=== PATIENT | male | born 1945 | race Caucasian/White ===

== ENCOUNTER 2016-09-11 | Emergency (ER) | payer MEDICARE | END 2016-09-11 17:03 | disposition home or self-care (01) ==

== ENCOUNTER 2016-10-26 19:05 | Outpatient (CLI) | payer MEDICARE | END 2016-10-26 19:06 | disposition short-term general hospital (02) | DX: R20.9 Unspecified disturbances of skin sensation (principal); W19.XXXA Unspecified fall, initial encounter; Y92.002 Bathroom of unspecified non-institutional (private) residence as the place of occurrence of the external cause | CPT/HCPCS: A0425; A0429 ==

== ENCOUNTER 2016-11-08 22:39 | Outpatient (CLI) | payer MEDICARE | END 2016-11-08 22:40 | disposition critical access hospital (66) | DX: M54.9 Dorsalgia, unspecified (principal); R07.9 Chest pain, unspecified; W18.39XA Other fall on same level, initial encounter; Y93.K1 Activity, walking an animal | CPT/HCPCS: A0425; A0427 ==

== ENCOUNTER 2016-11-08 22:48 | Emergency (ER) | payer MEDICARE | END 2016-11-09 02:10 | disposition home or self-care (01) | DX: R07.9 Chest pain, unspecified (principal); I10 Essential (primary) hypertension; I25.10 Atherosclerotic heart disease of native coronary artery without angina pectoris; E78.00 Pure hypercholesterolemia, unspecified; E11.9 Type 2 diabetes mellitus without complications; Z79.4 Long term (current) use of insulin; J44.9 Chronic obstructive pulmonary disease, unspecified; G47.30 Sleep apnea, unspecified; Z86.73 Personal history of transient ischemic attack (TIA), and cerebral infarction without residual deficits; Z86.718 Personal history of other venous thrombosis and embolism; M19.90 Unspecified osteoarthritis, unspecified site; Z79.82 Long term (current) use of aspirin; Z87.891 Personal history of nicotine dependence ==

== ENCOUNTER 2016-11-25 17:24 | Emergency (ER) | payer MEDICARE ==
[2016-11-25] MEDS ORDERED: ADENOSINE 6 MG/2 ML VIAL IVP STA (17:51)
[2016-11-25] MEDS ORDERED: ADENOSINE 6 MG/2 ML VIAL IVP ONE (17:52)
[2016-11-25] MEDS ORDERED: HEPARIN 25,000 UNITS/500 ML 500 ML IV STA (18:31)
[2016-11-25] MEDS ORDERED: HEPARIN 5,000 UNIT/ML VIAL IVP ONE (18:31)
[2016-11-25] MEDS ORDERED: METOPROLOL 5 MG/5 ML VIAL IVP ONE ×3 (18:34→19:07)
[2016-11-25] MEDS ORDERED: HEPARIN 5,000 UNIT/ML VIAL ONE ×2 (18:35)
[2016-11-25] MEDS ORDERED: HEPARIN 25,000 UNITS/500 ML 500 ML IV ONE (18:35)
[2016-11-25] MEDS: METOPROLOL 5 MG/5 ML VIAL IVP STA ×3 (18:37→19:09)
== END 2016-11-25 20:18 | disposition short-term general hospital (02) ==
DX: I21.4 Non-ST elevation (NSTEMI) myocardial infarction (principal); I25.10 Atherosclerotic heart disease of native coronary artery without angina pectoris; Z95.1 Presence of aortocoronary bypass graft; E11.22 Type 2 diabetes mellitus with diabetic chronic kidney disease; N18.5 Chronic kidney disease, stage 5; E11.51 Type 2 diabetes mellitus with diabetic peripheral angiopathy without gangrene; Z99.2 Dependence on renal dialysis; Z79.4 Long term (current) use of insulin; J44.9 Chronic obstructive pulmonary disease, unspecified; K21.9 Gastro-esophageal reflux disease without esophagitis; M19.90 Unspecified osteoarthritis, unspecified site; Z79.82 Long term (current) use of aspirin; Z87.891 Personal history of nicotine dependence; E78.00 Pure hypercholesterolemia, unspecified
CPT/HCPCS: 80053; 83690; 83735; 84484; 85025; 85610; 93005; 93010; 96374; 96375; 99284; 99291; J0153

== ENCOUNTER 2016-11-25 20:16 | Outpatient (CLI) | payer MEDICARE | END 2016-11-25 20:17 | disposition short-term general hospital (02) | DX: I21.4 Non-ST elevation (NSTEMI) myocardial infarction (principal) | CPT/HCPCS: A0425; A0426 ==

== ENCOUNTER 2017-02-27 01:24 | Emergency (ER) | payer MEDICARE ==
--- NOTE | 2017-02-27 01:59 | ED Physician Documentation ---
PD HPI CHEST PAIN - Stated complaint Stated Complaint: CHEST PAIN - History obtained from History obtained from: Patient - History of Present Illness Timing - onset: How many hours ago (3), Today Timing - onset during: Rest (watching TV, though he says he was tired due to driving into [place] today (his daughter hospitalized there and having surgery). ) Timing - duration: Hours (1-2 hours of some chest pressure/pain, improved enroute.) Timing - details: Abrupt onset, Now resolved. No: Still present Quality: Pressure, Aching, Pain Location: Substernal, Left chest Radiation: Back Worsened by: No: Exertion, Inspiration, Movement, Palpation Associated symptoms: Shortness of air, General Weakness. No: Nausea, Vomiting, Feeling faint / dizzy, Cough Similar symptoms before: Diagnosis (has had recurrent chest pains in the past, with history of diabetes, CAD with CABG and some lung disease.) Recently seen: Admitted (records showing transfer to [facility] in November 2016 and he says he had cath by Cardiology which did not show any significant stenoses of his prior grafts. Obtaining that cath report by [facility] Review of Systems Constitutional: denies: Fever, Chills Nose: denies: Rhinorrhea / runny nose, Congestion Throat: denies: Sore throat Cardiac: reports: Chest pain / pressure. denies: Palpitations, Pedal edema, Calf pain Respiratory: reports: Dyspnea (chronic), Cough GI: denies: Nausea, Vomiting, Diarrhea : denies: Dysuria, Frequency Skin: denies: Rash, Lesions Neurologic: reports: Generalized weakness. denies: Focal weakness, Numbness, Near syncope Endocrine: denies: Weight loss, Weight gain Immunocompromised: denies: Immunocompromised PD PAST MEDICAL HISTORY - Past Medical History Cardiovascular: Hypertension, High cholesterol, Coronary artery disease, Peripheral Vascular Disease, Deep vein thrombosis, Murmur Respiratory: COPD, Sleep apnea Neuro: CVA Endocrine/Autoimmune: Type 2 diabetes GI: GERD : Renal insuffiency HEENT: None Psych: Claustrophobia Musculoskeletal: Osteoarthritis Derm: None, Other - Past Surgical History Past Surgical History: Yes General: Appendectomy, Colonoscopy Cardiovascular: CABG, Coronary stent HEENT: Tonsil/Adenoidectomy - Present Medications Home Medications: Ambulatory Orders Medication Instructions Recorded Confirmed Aspirin [Aspir 81] 81 mg PO DAILY 01/27/13 02/27/17 Aspirin/Sod Bicarb/Citric Acid 1 tab PO BID PRN 01/27/13 02/27/17 [[place] Blue Tab Eff] Clopidogrel [Plavix] 75 mg PO DAILY 01/27/13 02/27/17 Atorvastatin Calcium 80 mg PO HS 02/09/13 02/27/17 Isosorbide Mononitrate [Isosorbide 60 mg PO DAILY 03/13/14 02/27/17 Mononitrate ER] Tamsulosin [Flomax] 0.4 mg PO QPM 08/06/14 02/27/17 Niacin [Niaspan] 500 mg PO DAILY 08/27/14 02/27/17 LORazepam [Ativan] 0.5 mg PO HS PRN 09/17/14 02/27/17 Cholecalciferol (Vitamin D3) 2,000 units PO DAILY 06/03/16 02/27/17 [Vitamin D3] Furosemide 80 mg PO BID 11/25/16 02/27/17 Insulin Detemir [Levemir] 25 unit SQ BID 02/27/17 02/27/17 Losartan [Cozaar] 100 mg PO DAILY 02/27/17 02/27/17 Metoprolol Succinate 1 tab PO DAILY 02/27/17 02/27/17 Omeprazole 1 tab PO BID 02/27/17 02/27/17 amLODIPine [Norvasc] 2 tab PO DAILY 02/27/17 02/27/17 - Allergies Allergies/Adverse Reactions: Allergies Allergy/AdvReac Type Severity Reaction Status Date / Time oxycodone AdvReac Intermediate Hallucinati Verified 02/27/17 02:19 ons bee stings Allergy Severe throat Uncoded 11/25/16 17:33 swelling - Social History Does the pt smoke?: No Smoking Status: Former smoker Does the pt drink ETOH?: No Does the pt have substance abuse?: No - Family History Family history: reports: Non contributory - Immunizations Immunizations are current?: Yes - POLST Patient has POLST: No PD ED PE NORMAL - Vitals Vital signs reviewed: Yes - General General: Alert and oriented X 3, No acute distress, Well developed/nourished - HEENT HEENT: Atraumatic, Other (somewhat unkempt hubbard and nails/hair. ) - Neck Neck: Supple, no meningeal sign, No adenopathy - Cardiac Cardiac: RRR, No murmur - Respiratory Respiratory: Clear bilaterally, Other (no chestwall tenderness. ) - Abdomen Abdomen: Normal bowel sounds, Soft, Non tender, Non distended - Back Back: No CVA TTP - Derm Derm: Normal color, Warm and dry - Extremities Extremities: No deformity, No tenderness to palpate, Normal ROM s pain, No edema , No calf tenderness / cord - Neuro Neuro: Alert and oriented X 3, No motor deficit, Normal speech - Psych Psych: Normal mood, Normal affect Results - Vitals Vitals: Vital Signs - 24 hr 02/27/17 03:50 Heart Rate 80 Respiratory 16 Rate Blood Pressure 105/60 O2 Saturation 96 Oxygen O2 Source [With Activity] Room air O2 Source [Without Activity] Room air O2 Source Room air - EKG (time done) 01:50 Rate: Rate (enter#) (89) Rhythm: NSR [place]: Normal Intervals: Normal [place] QRS: Normal Ischemia: Normal ST segments, Non specific changes. No: ST elevation c/w ischemia, ST depression - Labs Labs: Laboratory Tests 02/27/17 02/27/17 02:20 02:20 Sodium 139 Potassium 3.4 L Chloride 99 L Carbon Dioxide 26 Anion Gap 14.0 H BUN 42 H Creatinine 5.5 H Estimated GFR (MDRD) 10 L Glucose 108 H Calcium 10.6 H Magnesium 1.8 Total Bilirubin 0.5 AST 15 ALT 14 Alkaline Phosphatase 59 Troponin I 0.06 Total Protein 6.9 Albumin 3.8 Globulin 3.1 Albumin/Globulin Ratio 1.2 Lipase 14 L - Rads (name of study) chest Radiology: Prelim report reviewed, EMP read contemporaneously (no acute process) PD MEDICAL DECISION MAKING - ED course Complexity details: reviewed results, re-evaluated patient (pain is resolved here. ECG and troponin, CXR are okay. He is comfortable going home. ), considered differential, d/w patient Departure - Departure Disposition: Home, Self Care Clinical Impression: Chest pain Condition: Stable Record reviewed to determine appropriate education?: Yes Instructions: ED Chest Pain Atypical Unkn Cause Follow-Up: Nigel Alejo MD [Primary Care Provider] - Comments: Continue usual medications and treatments. Follow-up with your primary care or here in the ER if recurrent symptoms. At this point no signs of significant cause such as heart attack or heart failure. Discharge Date/Time: 02/27/17 04:05
[2017-02-27] MEDS ORDERED: ACETAMINOPHEN 325 MG TABLET PO STA (02:10)
[2017-02-27] MEDS ORDERED: ACETAMINOPHEN 325 MG TABLET PO ONE (02:18)
[2017-02-27 02:51] LABS: ALBUMIN/GLOBULIN RATIO 1.2 (1.0-2.2); BILIRUBIN,TOTAL 0.5 mg/dL (0.2-1.0); CALCIUM 10.6 mg/dL (8.5-10.3); CREATININE 5.5 mg/dL (0.6-1.2); MAGNESIUM 1.8 mg/dL (1.7-2.8); POTASSIUM 3.4 mmol/L (3.5-5.0); TOTAL PROTEIN 6.9 g/dL (6.7-8.2)
--- NOTE | 2017-02-27 03:42 | XRAY Preliminary Report ---
Exam: XR Chest 2 View PA/LAT IMPRESSION: Stable chest without acute process seen. [facility] SITE ID: [id number]
--- NOTE | 2017-02-27 03:44 | XRAY Report ---
EXAM: CHEST RADIOGRAPHY EXAM DATE: 02/27/2017 03:13 AM. CLINICAL HISTORY: Chest pain tonight. COMPARISON: 11/08/2016. TECHNIQUE: 2 views. FINDINGS: Lungs/Pleura: No focal opacities evident. No pleural effusion. No pneumothorax. Normal volumes. Mediastinum: Heart and mediastinal contours are unremarkable. Other: Stable right central catheter. Previous CABG. IMPRESSION: Stable chest without acute process seen. [facility] Referring Provider Line: [phone] SITE ID: [id number]
[2017-02-27 03:51] VITALS: BP 105/60
== END 2017-02-27 04:05 | disposition home or self-care (01) ==
LOC: ED 01:24
DX: R07.9 Chest pain, unspecified (principal); I10 Essential (primary) hypertension; E11.9 Type 2 diabetes mellitus without complications; Z79.4 Long term (current) use of insulin; I25.10 Atherosclerotic heart disease of native coronary artery without angina pectoris; Z95.1 Presence of aortocoronary bypass graft; I73.9 Peripheral vascular disease, unspecified; J44.9 Chronic obstructive pulmonary disease, unspecified; G47.30 Sleep apnea, unspecified; K21.9 Gastro-esophageal reflux disease without esophagitis; M19.90 Unspecified osteoarthritis, unspecified site; N28.9 Disorder of kidney and ureter, unspecified; Z86.718 Personal history of other venous thrombosis and embolism; Z87.891 Personal history of nicotine dependence; Z79.82 Long term (current) use of aspirin; E78.00 Pure hypercholesterolemia, unspecified
CPT/HCPCS: 36415; 71020; 80053; 83690; 83735; 84484; 93005; 99283; 99285; A9270

== ENCOUNTER 2017-05-09 21:38 | Emergency (ER) | payer MEDICARE ==
[2017-05-09] MEDS ORDERED: ASPIRIN CHEW 81 MG TABLET PO STA (21:51)
[2017-05-09] MEDS ORDERED: NITROGLYCERIN SL 0.4 MG TABLET SL STA ×3 (21:51→22:27)
[2017-05-09] MEDS ORDERED: NITROGLYCERIN SL 0.4 MG TABLET SL ONE ×2 (21:59→22:23)
[2017-05-09] MEDS ORDERED: ASPIRIN CHEW 81 MG TABLET ONE (21:59)
--- NOTE | 2017-05-09 22:00 | ED Physician Documentation ---
PD HPI CHEST PAIN - Stated complaint Stated Complaint: CHEST PAIN - Chief complaint Chief Complaint: Cardiac - History obtained from History obtained from: Patient - History of Present Illness Timing - onset: How many hours ago (2) Timing - onset during: Rest Timing - details: Still present Pain level now: 8 Quality: Pain Location: Right chest Radiation: Right upper extremity Associated symptoms: Shortness of air. No: Diaphoresis, Nausea, Vomiting Similar symptoms before: Diagnosis (History of CAD, S/P CABG) - Treatment prior to arrival Treatment prior to arrival: NTG x 1 w/o relief. - Additional information Additional information: The patient is a 71-year-old insulin-dependent diabetic, with history of coronary artery disease, status post CABG, and history of renal failure, on dialysis, who presents with right sided chest pain radiating to his right arm. His pain started about 2 hours prior to arrival while at rest. He reports associated shortness of breath. He denies nausea, vomiting, or diaphoresis. He rates his pain at 8 out of 10 in severity. He was seen here 2 months ago with similar episode that had resolved just prior to his arrival. Review of his medical record reveals that in November 2016 he was transferred to [facility] for chest pain, and underwent cardiac catheterization which reportedly revealed no significant stenosis in his prior grafts. Review of Systems Constitutional: denies: Fever Ears: denies: Tinnitus/ringing Nose: denies: Congestion Throat: denies: Sore throat Cardiac: reports: Chest pain / pressure. denies: Palpitations Respiratory: reports: Dyspnea. denies: Cough GI: denies: Abdominal Pain, Nausea, Vomiting : denies: Dysuria Skin: denies: Rash Musculoskeletal: denies: Back pain, Extremity swelling Neurologic: denies: Focal weakness, Numbness, Headache PD PAST MEDICAL HISTORY - Past Medical History Cardiovascular: Hypertension, High cholesterol, Coronary artery disease, Peripheral Vascular Disease, Deep vein thrombosis, Murmur Respiratory: COPD, Sleep apnea Neuro: CVA Endocrine/Autoimmune: Type 2 diabetes GI: GERD : Dialysis, Renal insuffiency HEENT: None Psych: Claustrophobia Musculoskeletal: Osteoarthritis Derm: None, Other - Past Surgical History Past Surgical History: Yes General: Appendectomy, Colonoscopy Cardiovascular: CABG, Coronary stent HEENT: Tonsil/Adenoidectomy - Present Medications Home Medications: Ambulatory Orders Medication Instructions Recorded Confirmed Aspirin [Aspir 81] 81 mg PO DAILY 07/05/13 10/15/17 Aspirin/Sod Bicarb/Citric Acid 1 tab PO BID PRN 01/27/13 05/09/17 [[place] Blue Tab Eff] Clopidogrel [Plavix] 75 mg PO DAILY 01/27/13 05/09/17 Atorvastatin Calcium 80 mg PO HS 02/09/13 05/09/17 Isosorbide Mononitrate [Isosorbide 60 mg PO DAILY 03/13/14 05/09/17 Mononitrate ER] Tamsulosin [Flomax] 0.4 mg PO QPM 08/06/14 05/09/17 Niacin [Niaspan] 500 mg PO DAILY 08/27/14 05/09/17 LORazepam [Ativan] 0.5 mg PO HS PRN 09/17/14 05/09/17 Cholecalciferol (Vitamin D3) 2,000 units PO DAILY 06/03/16 05/09/17 [Vitamin D3] Furosemide 80 mg PO BID 11/25/16 05/09/17 Insulin Detemir [Levemir] 25 unit SQ BID 02/27/17 05/09/17 Losartan [Cozaar] 100 mg PO DAILY 02/27/17 05/09/17 Metoprolol Succinate 1 tab PO DAILY 02/27/17 05/09/17 Omeprazole 1 tab PO BID 02/27/17 05/09/17 amLODIPine [Norvasc] 2 tab PO DAILY 02/27/17 05/09/17 - Allergies Allergies/Adverse Reactions: Allergies Allergy/AdvReac Type Severity Reaction Status Date / Time oxycodone AdvReac Intermediate Hallucinati Verified 02/27/17 02:19 ons bee stings Allergy Severe throat Uncoded 11/25/16 17:33 swelling - Living Situation Living Arrangement: reports: At home - Social History Does the pt smoke?: No Smoking Status: Never smoker Does the pt drink ETOH?: No Does the pt have substance abuse?: No - Immunizations Immunizations are current?: Yes - POLST Patient has POLST: No PD ED PE NORMAL - Vitals Vital signs reviewed: Yes (Hypertensive) - General General: Alert and oriented X 3, Other (Somewhat ill kempt male who appears stated age.) - HEENT HEENT: Atraumatic, Moist mucous membranes, Pharynx benign - Neck Neck: No adenopathy, No JVD - Cardiac Cardiac: RRR, No murmur - Respiratory Respiratory: No respiratory distress, Clear bilaterally, Other (No chest wall tenderness to palpation. His area of discomfort is directly over the site where his dialysis catheter had previously been placed, and was removed 2 weeks ago.) - Abdomen Abdomen: Soft, Non tender, Other (Rotund abdomen.) - Back Back: No CVA TTP - Derm Derm: No rash, Other (Blotches of superficial ecchymosis on his hands.) - Extremities Extremities: No edema (Trace pedal edema bilaterally.), No calf tenderness / cord - Neuro Neuro: Alert and oriented X 3, No motor deficit, Normal speech Results - Vitals Vitals: Vital Signs - 24 hr 05/09/17 05/09/17 05/09/17 21:42 22:12 22:30 Temperature 36.7 C Heart Rate 109 H 100 96 Respiratory 20 20 19 Rate Blood Pressure 186/71 H 162/67 H 129/62 O2 Saturation 99 95 96 05/10/17 05/10/17 05/10/17 00:30 01:21 02:30 Temperature 36.8 C Heart Rate 85 84 81 Respiratory 11 L 16 18 Rate Blood Pressure 152/68 H 148/65 H 179/89 H O2 Saturation 95 96 96 05/10/17 05/10/17 05/10/17 03:17 03:36 04:20 Temperature Heart Rate 87 81 72 Respiratory 18 11 L 15 Rate Blood Pressure 184/86 H 154/73 H 100/72 O2 Saturation 98 95 97 Oxygen O2 Source [] Room air O2 Source [] Room air O2 Source Room air - EKG (time done) 21:53 Rate: Rate (enter#) (96) Rhythm: NSR [place]: LAD QRS: LVH Ischemia: ST depression (in anterior and lateral leads I, aVL, and V2-V6, consistent with repolarization versus possible ischemia.) Compare to prior EKG: Changed from prior EKG (ST depression in V2 is slightly more pronounced than on previous EKG of 02/27/2017.) Computer interpretation: Agree with computer 02:46 Rate: Rate (enter#) (83) Rhythm: NSR Intervals: Normal [place] QRS: LVH Ischemia: ST depression Compare to prior EKG: Unchanged from prior EKG Computer interpretation: Agree with computer - Labs Labs: Laboratory Tests 05/09/17 05/09/17 05/09/17 22:10 22:10 22:10 WBC 9.5 RBC 3.49 L Hgb 11.5 L Hct 34.7 L MCV 99.2 H MCH 33.0 H MCHC 33.3 RDW 15.0 Plt Count 270 MPV 7.6 Neut # 5.8 Lymph # 2.0 Angelina # 1.1 H Eos # 0.4 Baso # 0.1 Absolute Nucleated RBC 0.00 Nucleated RBC % 0.0 Sodium 136 Potassium 3.6 Chloride 96 L Carbon Dioxide 25 Anion Gap 15.0 H BUN 41 H Creatinine 4.9 H Estimated GFR (MDRD) 12 L Glucose 266 H Calcium 10.1 Total Bilirubin 0.5 AST 16 ALT 12 Alkaline Phosphatase 74 Troponin I 0.12 B-Natriuretic Peptide Total Protein 7.5 Albumin 3.6 Globulin 3.9 Albumin/Globulin Ratio 0.9 L Lipase 21 L 05/09/17 05/10/17 22:10 02:25 WBC RBC Hgb Hct MCV MCH MCHC RDW Plt Count MPV Neut # Lymph # Angelina # Eos # Baso # Absolute Nucleated RBC Nucleated RBC % Sodium Potassium Chloride Carbon Dioxide Anion Gap BUN Creatinine Estimated GFR (MDRD) Glucose Calcium Total Bilirubin AST ALT Alkaline Phosphatase Troponin I 0.72 H* B-Natriuretic Peptide 161 H Total Protein Albumin Globulin Albumin/Globulin Ratio Lipase - Rads (name of study) Chest 1-view Radiology: Prelim report reviewed, EMP read contemporaneously, See rad report ( Rotated exam with small lung mooney and borderline heart size. No acute abnormality seen.) PD MEDICAL DECISION MAKING - ED course Complexity details: reviewed old records, reviewed results, re-evaluated patient , considered differential, d/w patient, d/w hospice care consultant ED course: The patient's presentation is significant for non-ST elevation ND. His initial troponin was in the normal range at 0.12, but 4 hour troponin became positive at 0.72. His electrocardiogram revealed no significant change from prior EKG of February 27, 2017, although the ST segment depression in anterior precordial lead V2 was somewhat more pronounced. Chest x-ray reveals no acute abnormality. Treatment in the emergency department included administration of 4 baby aspirin orally, sublingual nitroglycerin 3, which improved his pain to a 6 out of 10 in severity. Morphine 4 mg administered IV, which improved his pain yet further. GI cocktail had no impact on his discomfort. Subsequently Nitropaste 1 inch was applied topically, an additional 4 mg morphine was administered IV, and heparin bolus and drip was administered. The patient subsequently reports resolution of his chest pain. I discussed his condition with Dr. Kaur, hospice director at [facility], and he will see the patient upon arrival to [facility]. He advised that I should also talk to the hospitalist who will be the accepting physician. I discussed his condition with Dr. Thuy Vasquez, who will accept the patient in transfer. Transfer forms were completed, and the patient is being transferred by [facility] ambulance. Departure - Departure Disposition: 02 Transfer Acute Care Hosp Clinical Impression: NSTEMI (non-ST elevated myocardial infarction), Renal dialysis status Diabetes mellitus Qualifiers: Diabetes mellitus type: type 2 Diabetes mellitus complication status: with kidney complications Diabetes mellitus complication detail: with nephropathy Diabetes mellitus longterm insulin use: with longterm use Qualified Code(s): E11.21 - Type 2 diabetes mellitus with diabetic nephropathy Condition: Fair Discharge Date/Time: 05/10/17 04:50
[2017-05-09 22:14] LABS: BASOPHILS # (AUTO) 0.1 10^3/uL (0.0-0.1); BASOPHILS % (AUTO) 1.1 %; EOSINOPHILS # (AUTO) 0.4 10^3/uL (0.0-0.7); EOSINOPHILS % (AUTO) 4.4 %; HCT - HEMATOCRIT 34.7 % (42.0-52.0); HGB - HEMOGLOBIN 11.5 g/dL (14.0-18.0); LYMPHOCYTES % (AUTO) 21.3 %; MEAN CORPUSCULAR HGB CONC 33.3 g/dL (32.0-36.0); MEAN CORPUSCULAR VOLUME 99.2 fL (80.0-94.0); MEAN PLATELET VOLUME 7.6 fL (7.4-11.4); MONOCYTES # (AUTO) 1.1 10^3/uL (0.0-1.0); MONOCYTES % (AUTO) 11.6 %; NEUTROPHILS # (AUTO) 5.8 10^3/uL (1.5-6.6); NEUTROPHILS % (AUTO) 61.6 %; RED BLOOD COUNT 3.49 10^6/uL (4.70-6.10); UNCORRECTED WHITE BLOOD COUNT 9.5 x10^3/uL; WHITE BLOOD COUNT 9.5 x10^3/uL (4.8-10.8)
[2017-05-09 22:27] LABS: ALBUMIN/GLOBULIN RATIO 0.9 (1.0-2.2); BILIRUBIN,TOTAL 0.5 mg/dL (0.2-1.0); CALCIUM 10.1 mg/dL (8.5-10.3); CREATININE 4.9 mg/dL (0.6-1.2); POTASSIUM 3.6 mmol/L (3.5-5.0); TOTAL PROTEIN 7.5 g/dL (6.7-8.2)
--- NOTE | 2017-05-09 22:41 | XRAY Preliminary Report ---
Exam: XR CHEST 1 VIEW IMPRESSION: 1. Rotated exam with small lung volumes and borderline heart size. 2. No acute abnormality seen. [facility] SITE ID: [id number]
--- NOTE | 2017-05-09 22:44 | XRAY Report ---
EXAM: CHEST RADIOGRAPHY EXAM DATE: 05/09/2017 10:21 PM. CLINICAL HISTORY: Chest pain. COMPARISON: 02/27/2017. TECHNIQUE: 1 view. FINDINGS: Lungs/Pleura: Small lung volumes. Chronic increased markings. No alveolar consolidation or pleural ef fusion. No pneumothorax. Mediastinum: Rotated. Heart size is probably upper normal. Other: Median sternotomy. Dialysis catheter has been removed. IMPRESSION: 1. Rotated exam with small lung volumes and borderline heart size. 2. No acute abnormality seen. [facility] Referring Provider Line: [phone] SITE ID: [id number]
[2017-05-09] MEDS ORDERED: LIDOCAINE VISCOUS 2% 15 ML UDC MM STA (23:03)
[2017-05-09] MEDS ORDERED: PHENobarb/HYOSCY/ATROPINE/SCOP 5 ML SYRINGE PO STA (23:03)
[2017-05-09] MEDS ORDERED: MAG HYDROX/AL HYDROX/SIMETH 30 ML UDC PO STA (23:03)
[2017-05-09] MEDS ORDERED: PHENobarb/HYOSCY/ATROPINE/SCOP 5 ML SYRINGE PO ONE (23:10)
[2017-05-09] MEDS ORDERED: LIDOCAINE VISCOUS 2% 15 ML UDC MM ONE (23:10)
[2017-05-09] MEDS ORDERED: MAG HYDROX/AL HYDROX/SIMETH 30 ML UDC ONE (23:10)
[2017-05-09] MEDS ORDERED: MORPHINE 2 MG/ML SYRINGE IVP STA (23:44)
[2017-05-09] MEDS ORDERED: MORPHINE 2 MG/ML SYRINGE ONE (23:55)
[2017-05-09] MEDS ORDERED: SODIUM CHLORIDE FLUSH 0.9% 10 ML SYRINGE IVP ONE (23:55)
[2017-05-10] MEDS ORDERED: HEPARIN 5,000 UNIT/ML VIAL IVP ONE (02:56)
[2017-05-10] MEDS ORDERED: NITROGLYCERIN 2% PASTE TOP STA (02:57)
[2017-05-10] MEDS ORDERED: CLOPIDOGREL 300 MG TABLET PO STA (02:58)
[2017-05-10] MEDS ORDERED: NITROGLYCERIN 2% PASTE TOP ONE (03:02)
[2017-05-10] MEDS ORDERED: HEPARIN 25000UNITS/500ML (D5W) 25,000 UNIT/500 ML BAG IV ONE (03:03)
[2017-05-10] MEDS ORDERED: HEPARIN 5,000 UNIT/ML VIAL ONE ×2 (03:03→03:08)
[2017-05-10] MEDS ORDERED: CLOPIDOGREL 300 MG TABLET PO ONE (03:05)
[2017-05-10] MEDS ORDERED: MORPHINE 10 MG/ML VIAL IVP STA (03:08)
[2017-05-10] MEDS ORDERED: MORPHINE 2 MG/ML SYRINGE ONE (03:13)
[2017-05-10 04:21] VITALS: BP 100/72
[2017-05-10] MEDS ORDERED: HEPARIN 25000UNITS/500ML (D5W) 25,000 UNIT/500 ML BAG IV STA (04:41)
== END 2017-05-10 04:50 | disposition short-term general hospital (02) ==
LOC: ED 21:38
DX: I21.4 Non-ST elevation (NSTEMI) myocardial infarction (principal); E11.21 Type 2 diabetes mellitus with diabetic nephropathy; E11.22 Type 2 diabetes mellitus with diabetic chronic kidney disease; I12.9 Hypertensive chronic kidney disease with stage 1 through stage 4 chronic kidney disease, or unspecified chronic kidney disease; N18.9 Chronic kidney disease, unspecified; E11.51 Type 2 diabetes mellitus with diabetic peripheral angiopathy without gangrene; I25.10 Atherosclerotic heart disease of native coronary artery without angina pectoris; R94.31 Abnormal electrocardiogram [ECG] [EKG]; Z95.5 Presence of coronary angioplasty implant and graft; Z95.1 Presence of aortocoronary bypass graft; Z79.4 Long term (current) use of insulin; Z99.2 Dependence on renal dialysis; Z86.718 Personal history of other venous thrombosis and embolism; Z79.82 Long term (current) use of aspirin
CPT/HCPCS: 36415; 71010; 80053; 83690; 83880; 84484; 85025; 93005; 96374; 96375; 96376; 99284; A9270; J2270

== ENCOUNTER 2017-05-10 04:52 | Outpatient (CLI) | payer MEDICARE | END 2017-05-10 04:53 | disposition short-term general hospital (02) | LOC: EMS 04:52 | PROVIDERS: ATTEND Surgery | DX: R07.9 Chest pain, unspecified (principal) | CPT/HCPCS: A0425; A0426 ==

== ENCOUNTER 2017-05-25 17:29 | Emergency (ER) | payer MEDICARE ==
--- NOTE | 2017-05-25 17:47 | ED Physician Documentation ---
PD HPI CHEST PAIN - Stated complaint Stated Complaint: CHEST PX - Chief complaint Chief Complaint: Cardiac - History obtained from History obtained from: Patient - History of Present Illness Timing - onset: How many hours ago (3) Timing - onset during: Rest Timing - duration: Hours (3) Timing - details: Abrupt onset Pain level max: 5 Pain level now: 5 Quality: Pressure, Aching, Like prior ACS, Pain Location: Right chest Radiation: Other (non-radiating) Improved by: Nitro Worsened by: No: Exertion, Inspiration, Eating, Movement, Palpation, Position Associated symptoms: No: Shortness of air, Diaphoresis, Nausea, Vomiting, Feeling faint / dizzy, General Weakness, Palpitations, Cough Similar symptoms before: Diagnosis (states feels the same as his IL 2 weeks ago. States new stent placed at that time.) Review of Systems Ten Systems: 10 systems reviewed and negative Constitutional: denies: Fever, Chills Nose: denies: Rhinorrhea / runny nose, Congestion Throat: denies: Sore throat Respiratory: denies: Dyspnea, Cough, Wheezing GI: denies: Abdominal Pain, Nausea, Vomiting, Diarrhea Skin: denies: Rash Musculoskeletal: denies: Neck pain, Back pain Neurologic: denies: Focal weakness, Numbness, Headache PD PAST MEDICAL HISTORY - Past Medical History Past Medical History: Yes Cardiovascular: Hypertension, High cholesterol, Coronary artery disease, Peripheral Vascular Disease, Deep vein thrombosis, Murmur Respiratory: COPD, Sleep apnea Neuro: CVA Endocrine/Autoimmune: Type 2 diabetes GI: GERD : Dialysis, Renal insuffiency HEENT: None Psych: Claustrophobia Musculoskeletal: Osteoarthritis Derm: None, Other - Past Surgical History Past Surgical History: Yes General: Appendectomy, Colonoscopy Cardiovascular: CABG, Coronary stent HEENT: Tonsil/Adenoidectomy - Present Medications Home Medications: Ambulatory Orders Medication Instructions Recorded Confirmed Aspirin/Sod Bicarb/Citric Acid 1 tab PO BID PRN 01/27/13 05/25/17 [[place] Blue Tab Eff] Clopidogrel [Plavix] 75 mg PO DAILY 01/27/13 05/25/17 Atorvastatin Calcium 80 mg PO HS 02/09/13 05/25/17 Isosorbide Mononitrate [Isosorbide 30 mg PO DAILY 03/13/14 05/25/17 Mononitrate ER] Tamsulosin [Flomax] 0.4 mg PO QPM 08/06/14 05/25/17 Niacin [Niaspan] 500 mg PO DAILY 08/27/14 05/25/17 Cholecalciferol (Vitamin D3) 2,000 units PO DAILY 06/03/16 05/25/17 [Vitamin D3] Furosemide 80 mg PO DAILY 11/25/16 05/25/17 Insulin Detemir [Levemir] 25 unit SQ BID 02/27/17 05/25/17 Losartan [Cozaar] 150 mg PO DAILY 02/27/17 05/25/17 Metoprolol Succinate 1.5 tab PO DAILY 02/27/17 05/25/17 Omeprazole 1 tab PO BID 02/27/17 05/25/17 amLODIPine [Norvasc] 2 tab PO DAILY 02/27/17 05/25/17 Ascorbic Acid [Vitamin C] 250 mg PO DAILY 05/25/17 05/25/17 Ferrous Gluconate 324 mg PO DAILY 05/25/17 05/25/17 Insulin Glargine [Lantus Solostar] 40 units SQ BID 05/25/17 05/25/17 Nitroglycerin [Nitrostat] 1 tab SL PRN PRN 05/25/17 05/25/17 - Allergies Allergies/Adverse Reactions: Allergies Allergy/AdvReac Type Severity Reaction Status Date / Time oxycodone AdvReac Intermediate Hallucinati Verified 05/25/17 17:40 ons bee stings Allergy Severe throat Uncoded 11/25/16 17:33 swelling - Social History Does the pt smoke?: No Smoking Status: Never smoker Does the pt drink ETOH?: No Does the pt have substance abuse?: No - Immunizations Immunizations are current?: Yes - POLST Patient has POLST: No PD ED PE NORMAL - Vitals Vital signs reviewed: Yes - General General: Alert and oriented X 3, No acute distress - HEENT HEENT: Moist mucous membranes - Neck Neck: Supple, no meningeal sign - Cardiac Cardiac: RRR, Strong equal pulses - Respiratory Respiratory: No respiratory distress, Clear bilaterally - Abdomen Abdomen: Soft, Non tender, Non distended - Derm Derm: Warm and dry, No rash - Extremities Extremities: No calf tenderness / cord - Neuro Neuro: Alert and oriented X 3 - Psych Psych: Normal mood, Normal affect Results - Vitals Vitals: Vital Signs - 24 hr 05/25/17 05/25/17 05/25/17 17:35 18:48 18:53 Temperature 36.8 C Heart Rate 81 83 84 Respiratory 18 20 18 Rate Blood Pressure 186/70 H 159/55 H 163/56 H O2 Saturation 94 95 05/25/17 05/25/17 18:58 19:05 Temperature Heart Rate 88 88 Respiratory 18 17 Rate Blood Pressure 141/53 H 174/61 H O2 Saturation 93 94 Oxygen O2 Source [] Room air O2 Source [] Room air O2 Source Room air - EKG (time done) 1740 Rate: Rate (enter#) Rhythm: NSR [place]: LAD Intervals: Normal LA QRS: LVH (with IVCD) Ischemia: ST depression (V2-5) Compare to prior EKG: Unchanged from prior EKG - Labs Labs: Laboratory Tests 05/25/17 05/25/17 05/25/17 17:47 17:47 17:47 WBC 10.7 RBC 3.42 L Hgb 11.4 L Hct 33.9 L MCV 99.2 H MCH 33.4 H MCHC 33.6 RDW 15.2 H Plt Count 299 MPV 7.8 Neut # 7.7 H Lymph # 1.5 [place] # 0.9 Eos # 0.5 Baso # 0.1 Absolute Nucleated RBC 0.02 Nucleated RBC % 0.2 Sodium 138 Potassium 3.5 Chloride 98 L Carbon Dioxide 28 Anion Gap 12.0 BUN 17 Creatinine 3.0 H Estimated GFR (MDRD) 21 L Glucose 218 H POC Whole Bld Glucose Calcium 9.2 Total Bilirubin 0.3 AST 20 ALT 14 Alkaline Phosphatase 80 Troponin I < 0.04 Total Protein 7.4 Albumin 3.5 Globulin 3.9 Albumin/Globulin Ratio 0.9 L Lipase 21 L 05/25/17 17:47 WBC RBC Hgb Hct MCV MCH MCHC RDW Plt Count MPV Neut # Lymph # [place] # Eos # Baso # Absolute Nucleated RBC Nucleated RBC % Sodium Potassium Chloride Carbon Dioxide Anion Gap BUN Creatinine Estimated GFR (MDRD) Glucose POC Whole Bld Glucose 238 H Calcium Total Bilirubin AST ALT Alkaline Phosphatase Troponin I Total Protein Albumin Globulin Albumin/Globulin Ratio Lipase - Rads (name of study) cxr Radiology: Prelim report reviewed, EMP read contemporaneously, See rad report ( NAD) PD MEDICAL DECISION MAKING - ED course Complexity details: reviewed results, re-evaluated patient, considered differential (No ST elevation [place], no aortic dissection, no PE, no tension pneumothorax, no aortic aneurysm), d/w patient, d/w family, d/w program consultant ED course: Patient is a 71-year-old male who is a hemodialysis patient, dialyzed this morning, developed recurrent chest pain today after a new cardiac stent was placed last week at [facility]. Discussed the case with 1899 Dr. Watts, cardiology on-call who recommends admission either here or at [facility] to rule out IL and cardiology can see him in the morning if he goes to [facility]. I discussed the case with 1904 Dr. Polanco, the hospitalist here who is not comfortable keeping the patient here and recommends transfer to [facility]. I then called [facility] where the patient was graciously accepted by Dr. Vasquez, hospitalist. Patient did not take his aspirin today and so was given aspirin in the emergency department. No acute findings on EKG, initial troponin is negative. This document was made in part using voice recognition software. While efforts are made to proofread this document, sound alike and grammatical errors may occur. Departure - Departure Disposition: 02 Transfer Acute Care Hosp Clinical Impression: Chest pain Condition: Stable
[2017-05-25 18:05] LABS: BASOPHILS # (AUTO) 0.1 10^3/uL (0.0-0.1); BASOPHILS % (AUTO) 0.8 %; EOSINOPHILS # (AUTO) 0.5 10^3/uL (0.0-0.7); EOSINOPHILS % (AUTO) 4.4 %; HCT - HEMATOCRIT 33.9 % (42.0-52.0); HGB - HEMOGLOBIN 11.4 g/dL (14.0-18.0); LYMPHOCYTES # (AUTO) 1.5 10^3/uL (1.5-3.5); LYMPHOCYTES % (AUTO) 14.4 %; MEAN CORPUSCULAR HEMOGLOBIN 33.4 pg (27.0-31.0); MEAN CORPUSCULAR HGB CONC 33.6 g/dL (32.0-36.0); MEAN PLATELET VOLUME 7.8 fL (7.4-11.4); MONOCYTES # (AUTO) 0.9 10^3/uL (0.0-1.0); MONOCYTES % (AUTO) 8.7 %; NEUTROPHILS # (AUTO) 7.7 10^3/uL (1.5-6.6); NEUTROPHILS % (AUTO) 71.7 %; NUCLEATED RED BLOOD CELLS AUTO 0.2 /100WBC; RED BLOOD COUNT 3.42 10^6/uL (4.70-6.10); RED CELL DISTRIBUTION WIDTH 15.2 % (12.0-15.0); UNCORRECTED WHITE BLOOD COUNT 10.7 x10^3/uL; WHITE BLOOD COUNT 10.7 x10^3/uL (4.8-10.8)
[2017-05-25 18:08] LABS: MEAN CORPUSCULAR VOLUME 99.2 fL (80.0-94.0)
[2017-05-25 18:15] LABS: ALBUMIN/GLOBULIN RATIO 0.9 (1.0-2.2); BILIRUBIN,TOTAL 0.3 mg/dL (0.2-1.0); CALCIUM 9.2 mg/dL (8.5-10.3); POTASSIUM 3.5 mmol/L (3.5-5.0); TOTAL PROTEIN 7.4 g/dL (6.7-8.2)
--- NOTE | 2017-05-25 18:28 | XRAY Preliminary Report ---
Exam: XR CHEST 1 VIEW IMPRESSION: No acute intrathoracic plain film abnormality. [facility] SITE ID: [id number]
--- NOTE | 2017-05-25 18:30 | XRAY Report ---
EXAM: CHEST RADIOGRAPHY EXAM DATE: 05/25/2017 06:01 PM. CLINICAL HISTORY: Chest pain. COMPARISON: 05/09/2017. TECHNIQUE: 1 view. FINDINGS: Lungs/Pleura: No focal opacities evident. No pleural effusion. No pneumothorax. Mediastinum: Mild cardiomegaly. Patient has undergone median sternotomy for coronary artery bypass gr afting. Other: None. IMPRESSION: No acute intrathoracic plain film abnormality. [facility] Referring Provider Line: [phone] SITE ID: [id number]
[2017-05-25] MEDS ORDERED: NITROGLYCERIN SL 0.4 MG TABLET SL STA (18:41)
[2017-05-25] MEDS ORDERED: NITROGLYCERIN SL 0.4 MG TABLET SL ONE (18:54)
[2017-05-25] MEDS ORDERED: ASPIRIN CHEW 81 MG TABLET PO STA (18:58)
[2017-05-25] MEDS ORDERED: ASPIRIN CHEW 81 MG TABLET ONE (19:05)
[2017-05-25 21:17] VITALS: BP 164/66
== END 2017-05-25 21:24 | disposition short-term general hospital (02) ==
LOC: ED 17:29
DX: R07.9 Chest pain, unspecified (principal); E11.22 Type 2 diabetes mellitus with diabetic chronic kidney disease; I12.0 Hypertensive chronic kidney disease with stage 5 chronic kidney disease or end stage renal disease; N18.6 End stage renal disease; Z99.2 Dependence on renal dialysis; I25.10 Atherosclerotic heart disease of native coronary artery without angina pectoris; E11.51 Type 2 diabetes mellitus with diabetic peripheral angiopathy without gangrene; J44.9 Chronic obstructive pulmonary disease, unspecified; E78.00 Pure hypercholesterolemia, unspecified; Z86.718 Personal history of other venous thrombosis and embolism; Z95.1 Presence of aortocoronary bypass graft; Z95.5 Presence of coronary angioplasty implant and graft; Z79.82 Long term (current) use of aspirin; Z79.02 Long term (current) use of antithrombotics/antiplatelets; Z79.4 Long term (current) use of insulin
CPT/HCPCS: 36415; 71010; 80053; 83690; 84484; 85025; 93005; 99285; A9270

== ENCOUNTER 2017-06-19 16:44 | Emergency (ER) | payer MEDICARE ==
[2017-06-19 17:08] VITALS: BP 147/73
--- NOTE | 2017-06-19 18:26 | ED Physician Documentation ---
History of Present Illness - Stated complaint Stated Complaint: FALL, L ARM PX - Chief complaint Chief Complaint: General - History obtained from History obtained from: Patient (pt was at the store today and tripped over a cart and fell forward and landed on his knees, hitting his face (nose) right elbow and right finger. No LOC, no headache, no joint pain. states that he wanted his left arm looked at to see if he needed stitches. Pt is on plavix and ASA and is a dialysis patient.) Review of Systems Constitutional: denies: Fever, Chills, Fatigue, Weight Loss Eyes: denies: Loss of vision Cardiac: denies: Chest pain / pressure, Palpitations Respiratory: denies: Cough, Hemoptysis GI: denies: Abdominal Pain, Nausea, Vomiting, Constipation, Diarrhea : denies: Dysuria Skin: reports: Lesions, Laceration (s) (left elbow). denies: Rash Musculoskeletal: denies: Neck pain, Back pain, Extremity pain, Joint pain, Joint swelling Neurologic: denies: Confused, Headache, Head injury, LOC PD PAST MEDICAL HISTORY - Past Medical History Past Medical History: Yes Cardiovascular: Hypertension, High cholesterol, Coronary artery disease, Peripheral Vascular Disease, Deep vein thrombosis, Murmur Respiratory: COPD, Sleep apnea Neuro: CVA Endocrine/Autoimmune: Type 2 diabetes GI: GERD : Dialysis, Renal insuffiency HEENT: None Psych: Claustrophobia Musculoskeletal: Osteoarthritis Derm: None, Other - Past Surgical History Past Surgical History: Yes General: Appendectomy, Colonoscopy Cardiovascular: CABG, Coronary stent HEENT: Tonsil/Adenoidectomy - Present Medications Home Medications: Ambulatory Orders Medication Instructions Recorded Confirmed Aspirin/Sod Bicarb/Citric Acid 1 tab PO BID PRN 01/27/13 05/25/17 [[place] Blue Tab Eff] Clopidogrel [Plavix] 75 mg PO DAILY 01/27/13 05/25/17 Atorvastatin Calcium 80 mg PO HS 02/09/13 05/25/17 Isosorbide Mononitrate [Isosorbide 30 mg PO DAILY 03/13/14 05/25/17 Mononitrate ER] Tamsulosin [Flomax] 0.4 mg PO QPM 08/06/14 05/25/17 Niacin [Niaspan] 500 mg PO DAILY 08/27/14 05/25/17 Cholecalciferol (Vitamin D3) 2,000 units PO DAILY 06/03/16 05/25/17 [Vitamin D3] Furosemide 80 mg PO DAILY 11/25/16 05/25/17 Insulin Detemir [Levemir] 25 unit SQ BID 02/27/17 05/25/17 Losartan [Cozaar] 150 mg PO DAILY 02/27/17 05/25/17 Metoprolol Succinate 1.5 tab PO DAILY 02/27/17 05/25/17 Omeprazole 1 tab PO BID 02/27/17 05/25/17 amLODIPine [Norvasc] 2 tab PO DAILY 02/27/17 05/25/17 Ascorbic Acid [Vitamin C] 250 mg PO DAILY 05/25/17 05/25/17 Ferrous Gluconate 324 mg PO DAILY 05/25/17 05/25/17 Insulin Glargine [Lantus Solostar] 40 units SQ BID 05/25/17 05/25/17 Nitroglycerin [Nitrostat] 1 tab SL PRN PRN 05/25/17 05/25/17 - Allergies Allergies/Adverse Reactions: Allergies Allergy/AdvReac Type Severity Reaction Status Date / Time oxycodone AdvReac Intermediate Hallucinati Verified 06/19/17 17:08 ons bee stings Allergy Severe throat Uncoded 11/25/16 17:33 swelling - Social History Does the pt smoke?: No Smoking Status: Never smoker Does the pt drink ETOH?: No Does the pt have substance abuse?: No - Immunizations Immunizations are current?: Yes - POLST Patient has POLST: No PD ED PE NORMAL - Vitals Vital signs reviewed: Yes - General General: Alert and oriented X 3 - HEENT HEENT: Atraumatic, PERRL, EOMI - Neck Neck: Supple, no meningeal sign, Other (no midline tenderness) - Cardiac Cardiac: RRR, No murmur - Respiratory Respiratory: No respiratory distress - Abdomen Abdomen: Normal bowel sounds, Non tender - Derm Derm: Other (skin abrasion over the right index finger. no active bleeding no need for stitches. bruising over bilateral anterior knees. Hossein abrasion over the left elbow. ) - Extremities Extremities: No deformity, Other (pt with full ROM of the left elbow and bilateral knees and fingers w/o pain. ) - Neuro Neuro: Alert and oriented X 3 Eye Opening: Spontaneous Motor: Obeys Commands Verbal: Oriented GCS Score: 15 - Psych Psych: Normal mood, Normal affect Results - Vitals Vitals: Vital Signs - 24 hr 06/19/17 17:04 Temperature 36.8 C Heart Rate 78 Respiratory 20 Rate Blood Pressure 147/73 H O2 Saturation 97 Oxygen O2 Source [With Activity] Room air O2 Source [Without Activity] Room air O2 Source Room air PD MEDICAL DECISION MAKING - ED course Complexity details: d/w patient ED course: pt with mechanical fall. No LOC, no head injury. will hold on head CT for now. has abrasion over his left elbow but has full ROM doubt fracture. covered the area. abrasion on his fingers but full ROM. Discussed care with the pt and return precautions. Departure - Departure Disposition: 01 Home, Self Care Clinical Impression: Fall, Elbow abrasion, Finger abrasion, Knee contusion Condition: Good Instructions: Wound Care Follow-Up: primary,care provider [Other] Comments: keep the areas covered and clean and dry. Return to the ER for any new or worsening symptoms. Td updated.
[2017-06-19] MEDS ORDERED: TETANUS/DIPHTHERIA/PERTUSSIS 0.5 ML SYRINGE IM ONE ×2 (18:30→18:39)
== END 2017-06-19 18:41 | disposition home or self-care (01) ==
LOC: ED 16:44
DX: S50.312A Abrasion of left elbow, initial encounter (principal); S60.410A Abrasion of right index finger, initial encounter; S80.02XA Contusion of left knee, initial encounter; S80.01XA Contusion of right knee, initial encounter; W01.198A Fall on same level from slipping, tripping and stumbling with subsequent striking against other object, initial encounter; Y92.512 Supermarket, store or market as the place of occurrence of the external cause; Z23 Encounter for immunization; E11.22 Type 2 diabetes mellitus with diabetic chronic kidney disease; I12.9 Hypertensive chronic kidney disease with stage 1 through stage 4 chronic kidney disease, or unspecified chronic kidney disease; N18.9 Chronic kidney disease, unspecified; E11.51 Type 2 diabetes mellitus with diabetic peripheral angiopathy without gangrene; Z79.4 Long term (current) use of insulin; Z99.2 Dependence on renal dialysis; E78.00 Pure hypercholesterolemia, unspecified; I25.10 Atherosclerotic heart disease of native coronary artery without angina pectoris; Z79.02 Long term (current) use of antithrombotics/antiplatelets; Z86.718 Personal history of other venous thrombosis and embolism; K21.9 Gastro-esophageal reflux disease without esophagitis; M19.90 Unspecified osteoarthritis, unspecified site; Z79.82 Long term (current) use of aspirin
CPT/HCPCS: 90471; 99283

== ENCOUNTER 2018-08-09 20:15 | Outpatient (CLI) | payer MEDICARE, OTHER | END 2018-08-09 20:16 | disposition short-term general hospital (02) | LOC: EMS 20:15 | PROVIDERS: ATTEND Surgery | DX: R07.9 Chest pain, unspecified (principal) | CPT/HCPCS: A0425; A0427 ==

== ENCOUNTER 2018-09-02 16:17 | Outpatient (CLI) | payer MEDICARE, OTHER | END 2018-09-02 16:18 | disposition critical access hospital (66) | LOC: EMS 16:17 | PROVIDERS: ATTEND Surgery | DX: R07.9 Chest pain, unspecified (principal) | CPT/HCPCS: A0425; A0427 ==

== ENCOUNTER 2018-09-02 23:48 | Outpatient (CLI) | payer MEDICARE, OTHER | END 2018-09-02 23:59 | disposition short-term general hospital (02) | LOC: EMS 23:48 | PROVIDERS: ATTEND Surgery | DX: I21.4 Non-ST elevation (NSTEMI) myocardial infarction (principal) | CPT/HCPCS: A0425; A0426 ==

== ENCOUNTER 2018-09-06 17:31 | Emergency (ER) | payer MEDICARE, OTHER ==
[2018-09-06 18:25] LABS: BASOPHILS % (AUTO) 0.3 %; EOSINOPHILS # (AUTO) 0.3 10^3/uL (0.0-0.7); EOSINOPHILS % (AUTO) 3.1 %; HGB - HEMOGLOBIN 11.4 g/dL (14.0-18.0); LYMPHOCYTES # (AUTO) 1.4 10^3/uL (1.5-3.5); LYMPHOCYTES % (AUTO) 15.8 %; MEAN CORPUSCULAR HEMOGLOBIN 33.3 pg (27.0-31.0); MEAN CORPUSCULAR HGB CONC 33.4 g/dL (32.0-36.0); MEAN CORPUSCULAR VOLUME 99.6 fL (80.0-94.0); MEAN PLATELET VOLUME 8.4 fL (7.4-11.4); MONOCYTES # (AUTO) 0.9 10^3/uL (0.0-1.0); MONOCYTES % (AUTO) 10.5 %; NEUTROPHILS # (AUTO) 6.2 10^3/uL (1.5-6.6); NEUTROPHILS % (AUTO) 70.3 %; PLT - PLATELET COUNT 236 10^3/uL (130-450); RED BLOOD COUNT 3.42 10^6/uL (4.70-6.10); RED CELL DISTRIBUTION WIDTH 13.3 % (12.0-15.0); WHITE BLOOD COUNT 8.8 x10^3/uL (4.8-10.8)
--- NOTE | 2018-09-06 18:25 | ED Physician Documentation ---
PD HPI CHEST PAIN - Stated complaint Stated Complaint: CP - Chief complaint Chief Complaint: Cardiac - History obtained from History obtained from: Patient, Family - History of Present Illness Timing - onset: Today (This is a 72-year-old gentleman with long history of coronary disease. He had an NSTEMI about a week ago and went to [place] noting that his usual mechanical expert is at [facility] but they were full at the time. An angiogram was done and he had one stent placed and per his description they it was another blockage that was treated with plain old balloon angioplasty because it was "too tight" for a stent. He developed right-sided chest pressure this morning that is nonradiating and not associated with shortness of breath. It was worse while walking around at [facility]. Of note he is on dialysis, Wednesday and Wednesday.) Review of Systems Ten Systems: 10 systems reviewed and negative Constitutional: denies: Fever, Chills Cardiac: reports: Chest pain / pressure. denies: Palpitations, Pedal edema, Calf pain Respiratory: denies: Dyspnea, Cough PD PAST MEDICAL HISTORY - Past Medical History Cardiovascular: Hypertension, High cholesterol, Coronary artery disease, Peripheral Vascular Disease, Deep vein thrombosis, Murmur Respiratory: COPD, Sleep apnea Endocrine/Autoimmune: Type 2 diabetes GI: GERD : Dialysis, Renal insuffiency HEENT: None Psych: Claustrophobia Musculoskeletal: Osteoarthritis Derm: None, Other - Past Surgical History Past Surgical History: Yes General: Appendectomy, Colonoscopy Cardiovascular: CABG, Coronary stent HEENT: Tonsil/Adenoidectomy - Present Medications Home Medications: Ambulatory Orders Medication Instructions Recorded Confirmed Clopidogrel [Plavix] 75 mg PO DAILY 01/27/13 09/06/18 Atorvastatin Calcium 80 mg PO HS 02/09/13 09/06/18 Isosorbide Mononitrate [Isosorbide 30 mg PO DAILY 03/13/14 09/06/18 Mononitrate ER] Tamsulosin [Flomax] 0.4 mg PO QPM 08/06/14 09/06/18 Niacin [Niaspan] 500 mg PO DAILY 08/27/14 09/06/18 Cholecalciferol (Vitamin D3) 2,000 units PO DAILY 06/03/16 09/06/18 [Vitamin D3] Furosemide 80 mg PO DAILY 11/25/16 09/06/18 Insulin Detemir [Levemir] 25 unit SQ BID 02/27/17 09/06/18 Metoprolol Succinate 1.5 tab PO DAILY 02/27/17 09/06/18 amLODIPine [Norvasc] 2 tab PO DAILY 02/27/17 09/06/18 Ascorbic Acid [Vitamin C] 250 mg PO DAILY 05/25/17 09/06/18 Ferrous Gluconate 324 mg PO DAILY 05/25/17 09/06/18 Insulin Glargine [Lantus Solostar] 30 units SQ BID 05/25/17 09/06/18 Nitroglycerin [Nitrostat] 1 tab SL PRN PRN 05/25/17 09/06/18 Aspirin [Adult Low Dose Aspirin EC] 1 tab PO DAILY 09/02/18 09/06/18 Insulin Lispro [Humalog Arturo 6 units SQ BID 09/02/18 09/06/18 Kwikpen] LORazepam [Ativan] 1 tab PO QPM 09/02/18 09/06/18 Valsartan 1 tab PO DAILY 09/02/18 09/06/18 - Allergies Allergies/Adverse Reactions: Allergies Allergy/AdvReac Type Severity Reaction Status Date / Time oxycodone AdvReac Intermediate Hallucinati Verified 09/06/18 17:46 ons bee stings Allergy Severe throat Uncoded 09/06/18 17:46 swelling - Social History Does the pt smoke?: No Smoking Status: Former smoker Does the pt drink ETOH?: No Does the pt have substance abuse?: No - Family History Family history: reports: Non contributory - Immunizations Immunizations are current?: Yes - POLST Patient has POLST: No PD ED PE NORMAL - Vitals Vital signs reviewed: Yes - General General: Alert and oriented X 3, No acute distress - HEENT HEENT: PERRL, EOMI - Neck Neck: Supple, no meningeal sign, No bony TTP - Cardiac Cardiac: RRR, No murmur - Respiratory Respiratory: No respiratory distress, Clear bilaterally - Abdomen Abdomen: Normal bowel sounds, Soft, Non tender - Back Back: No CVA TTP, No spinal TTP - Derm Derm: Normal color, Warm and dry - Extremities Extremities: No edema, No calf tenderness / cord - Neuro Neuro: Alert and oriented X 3, Normal speech - Psych Psych: Normal mood, Normal affect Results - Vitals Vitals: Vital Signs - 24 hr 09/06/18 09/06/18 09/06/18 17:44 18:16 18:46 Temperature 36.4 C L Heart Rate 76 72 72 Respiratory 18 16 16 Rate Blood Pressure 144/66 H 129/67 154/68 H O2 Saturation 95 94 94 09/06/18 09/06/18 19:00 19:56 Temperature Heart Rate 76 70 Respiratory 16 14 Rate Blood Pressure 129/67 144/73 H O2 Saturation 96 97 Oxygen O2 Source [] Room air O2 Source [] Room air O2 Source Room air - EKG (time done) 1741 Rate: Rate (enter#) (76) Rhythm: NSR [place]: Normal Intervals: Normal UT, LBBB Computer interpretation: Agree with computer - Labs Labs: Laboratory Tests 09/06/18 09/06/18 09/06/18 18:18 18:18 18:18 WBC 8.8 RBC 3.42 L Hgb 11.4 L Hct 34.1 L MCV 99.6 H MCH 33.3 H MCHC 33.4 RDW 13.3 Plt Count 236 MPV 8.4 Neut # (Auto) 6.2 Lymph # (Auto) 1.4 L [place] # (Auto) 0.9 Eos # (Auto) 0.3 Baso # (Auto) 0.0 Absolute Nucleated RBC 0.00 Nucleated RBC % 0.0 PT 11.5 INR 1.0 Sodium 133 L Potassium 4.5 Chloride 95 L Carbon Dioxide 25 Anion Gap 13.0 BUN 32 H Creatinine 5.6 H Estimated GFR (MDRD) 10 L Glucose 144 H Calcium 8.2 L Total Bilirubin 0.6 AST 23 ALT 16 Alkaline Phosphatase 98 Total Creatine Kinase 151 CK-MB (CK-2) Troponin I Total Protein 7.4 Albumin 3.6 Globulin 3.8 Albumin/Globulin Ratio 0.9 L Lipase 26 09/06/18 18:18 WBC RBC Hgb Hct MCV MCH MCHC RDW Plt Count MPV Neut # (Auto) Lymph # (Auto) [place] # (Auto) Eos # (Auto) Baso # (Auto) Absolute Nucleated RBC Nucleated RBC % PT INR Sodium Potassium Chloride Carbon Dioxide Anion Gap BUN Creatinine Estimated GFR (MDRD) Glucose Calcium Total Bilirubin AST ALT Alkaline Phosphatase Total Creatine Kinase CK-MB (CK-2) 3.5 Troponin I 1.20 H* Total Protein Albumin Globulin Albumin/Globulin Ratio Lipase - Rads (name of study) 1v chest Radiology: EMP read contemporaneously (NAD) PD MEDICAL DECISION MAKING - ED course ED course: This is a 72-year-old gentleman with known coronary disease who presents with new somewhat typical chest pain in the setting of a recent intervention where only plain old balloon angioplasty could be done and as such he is at high risk for recurrence and rethrombosis. His EKG is reassuring but his troponin is higher than it was last week. It is possible that this may be sticking around because he is dialysis patient but given the overall picture he needs to be transferred to a facility with cardiology for further evaluation and treatment spoke with Dr. Cox at [facility] at 715 and he will consult but defers to the hospitalist therefore admission. He was started on a heparin drip, given IV metoprolol and oral aspirin. Accepted in transfer by Dr. Thuy Vasquez at 8:05 PM and cobras were completed. - Critical Care Time(min): 40 Time Includes: Direct patient care, Review records, Reassess patient, Document care, Coordinate care, Medical consult, Family consult for tx dec Data interpretation: Labs Procedures included in critical care time: Peripheral IV Procedures excluded from critical care time: EKG Departure - Departure Disposition: 02 Transfer Acute Care Hosp Clinical Impression: NSTEMI (non-ST elevated myocardial infarction), Chest pain Diabetes Qualifiers: Diabetes mellitus type: type 2 Diabetes mellitus assisted insulin use: with termite technician use Diabetes mellitus complication status: with hyperglycemia Qualified Code(s): E11.65 - Type 2 diabetes mellitus with hyperglycemia Chronic renal failure Qualifiers: Chronic kidney disease stage: stage 5 Qualified Code(s): N18.5 - Chronic kidney disease, stage 5
--- NOTE | 2018-09-06 18:29 | XRAY Report ---
Reason: CP Procedure Date: 09/06/2018 Accession Number: [id number] / [id number] Procedure: XR - Chest 1 View X-Ray CPT Code: 03689 FULL RESULT: EXAM: CHEST RADIOGRAPHY EXAM DATE: 09/06/2018 06:14 PM. CLINICAL HISTORY: Chest pain COMPARISON: CHEST 1 VIEW 09/02/2018 4:53 PM. TECHNIQUE: 1 view. FINDINGS: Lungs/Pleura: Lungs appear unchanged. No consolidation or edema. Negative for pneumothorax. Mediastinum: Trachea is midline. Previous median sternotomy is noted. There is mild to moderate aortic arch atherosclerotic calcification. Other: None. IMPRESSION: 1. Negative for an acute cardiopulmonary abnormality. [facility]
[2018-09-06 18:32] LABS: PT - PROTHROMBIN TIME 11.5 secs (9.9-12.6)
[2018-09-06 18:38] LABS: ALBUMIN 3.6 g/dL (3.2-5.5); ALBUMIN/GLOBULIN RATIO 0.9 (1.0-2.2); BILIRUBIN,TOTAL 0.6 mg/dL (0.2-1.0); CALCIUM 8.2 mg/dL (8.5-10.3); CREATININE 5.6 mg/dL (0.6-1.2); TOTAL PROTEIN 7.4 g/dL (6.7-8.2)
[2018-09-06 18:47] LABS: CREATINE KINASE MB 3.5 ng/mL (0.6-6.3)
[2018-09-06 18:54] LABS: TROPONIN I 1.2 ng/mL (<0.49)
[2018-09-06] MEDS ORDERED: HEPARIN 5,000 UNIT/ML VIAL IVP STA (18:55)
[2018-09-06] MEDS ORDERED: ASPIRIN 325 MG TABLET PO STA (18:55)
[2018-09-06] MEDS ORDERED: METOPROLOL 5 MG/5 ML VIAL IVP STA (18:55)
[2018-09-06] MEDS ORDERED: HEPARIN 25000UNITS/500ML (D5W) 25,000 UNIT/500 ML BAG IV STA (18:56)
[2018-09-06] MEDS ORDERED: NITROGLYCERIN 2% PASTE TOP STA (20:26)
[2018-09-06] MEDS ORDERED: NITROGLYCERIN 2% PASTE TOP ONE (20:32)
[2018-09-06 20:34] VITALS: BP 136/66
== END 2018-09-06 21:00 | disposition short-term general hospital (02) ==
LOC: ED 17:31
DX: I21.4 Non-ST elevation (NSTEMI) myocardial infarction (principal); R07.9 Chest pain, unspecified; I12.0 Hypertensive chronic kidney disease with stage 5 chronic kidney disease or end stage renal disease; E11.22 Type 2 diabetes mellitus with diabetic chronic kidney disease; N18.5 Chronic kidney disease, stage 5; Z99.2 Dependence on renal dialysis; Z79.4 Long term (current) use of insulin; E11.51 Type 2 diabetes mellitus with diabetic peripheral angiopathy without gangrene; E78.00 Pure hypercholesterolemia, unspecified; I25.10 Atherosclerotic heart disease of native coronary artery without angina pectoris; Z95.1 Presence of aortocoronary bypass graft; Z95.5 Presence of coronary angioplasty implant and graft; Z87.891 Personal history of nicotine dependence
CPT/HCPCS: 36415; 71045; 80053; 82550; 82553; 83690; 84484; 85025; 85610; 93005; 96365; 96366; 96375; 99284; 99291; A9270

== ENCOUNTER 2018-09-06 21:04 | Outpatient (CLI) | payer MEDICARE, OTHER | END 2018-09-06 21:05 | disposition short-term general hospital (02) | LOC: EMS 21:04 | PROVIDERS: ATTEND Surgery | DX: I21.4 Non-ST elevation (NSTEMI) myocardial infarction (principal) | CPT/HCPCS: A0425; A0426 ==

== ENCOUNTER 2018-10-27 19:38 | Outpatient (CLI) | payer MEDICARE, OTHER | END 2018-10-27 19:39 | disposition short-term general hospital (02) | LOC: EMS 19:38 | PROVIDERS: ATTEND Surgery | DX: R07.9 Chest pain, unspecified (principal) | CPT/HCPCS: A0425; A0427 ==

== ENCOUNTER 2019-01-25 02:29 | Outpatient (CLI) | payer MEDICARE, OTHER | END 2019-01-25 02:30 | disposition EMS.NT | LOC: EMS 02:29 | PROVIDERS: ATTEND Surgery | DX: Z03.89 Encounter for observation for other suspected diseases and conditions ruled out (principal) ==

== ENCOUNTER 2019-01-29 08:24 | Outpatient (CLI) | payer MEDICARE, OTHER | END 2019-01-29 08:25 | disposition EMS.NT | LOC: EMS 08:24 | PROVIDERS: ATTEND Surgery | DX: Z03.89 Encounter for observation for other suspected diseases and conditions ruled out (principal) ==

== ENCOUNTER 2019-02-07 13:22 | Outpatient (CLI) | payer MEDICARE, OTHER ==
--- NOTE | 2019-02-07 15:49 | CT Report ---
Reason: UNSPECIFIED INJURY OF FACE, FACIAL MASS Procedure Date: 02/07/2019 Accession Number: [id number] / [id number] Procedure: CT - MAXILLOFACIAL WO CPT Code: FULL RESULT: EXAM: CT MAXILLOFACIAL WITHOUT CONTRAST. EXAM DATE: 02/07/2019 01:51 PM. CLINICAL HISTORY: Fall 3 weeks ago. Blow to the face under the right eye. COMPARISONS: HEAD W/O 03/13/2014 8:43 PM. TECHNIQUE: Thin-section axial images were acquired of the face without contrast. Post-processing: Coronal and sagittal reformats. Other: None. In accordance with CT protocol optimization, one or more of the following dose reduction techniques were utilized for this exam: automated exposure control, adjustment of mA and/or KV based on patient size, or use of iterative reconstructive technique. FINDINGS: Soft Tissue: The infratemporal fossa and parapharyngeal spaces are unremarkable. Orbits: Symmetric and atraumatic in the retrocorneal region. Within the medial right orbit, along the surface of the globe is a 3 mm calcification, possibly related to prior glaucoma intervention but a radiopaque foreign body should be ruled out. Bones: No fracture or bone lesion. Temporomandibular Joints: The temporomandibular joints are symmetric and normally located. Sinuses: Mucoid retention cysts are seen in both maxillary sinuses, left greater than right. Frontal sinuses and sphenoid sinus as well as ethmoid air cells are within normal limits. Other: There is markedly compromised dentition with advanced dental caries and essentially all visualized remaining teeth. Periodontal cyst or fluid collections are seen in multiple locations. There is loss of the osseous cortex and soft tissue thickening at what is likely tooth 10, concerning for subperiosteal abscess formation, see image 57 series 8 and image 62 of series 8. Similarly, an example of osseous destruction potentially with intraosseous tooth abscess can be seen at tooth position 7, see image 61. IMPRESSION: Dental caries with concern for periodontal and possibly periosteal abscess formation as described. No evidence for traumatic fracture. Recommend correlation to history of surgical treatment of the right eye with consideration for examination of the right eye for foreign body as described above. [facility]
== END 2019-02-07 13:23 | disposition home or self-care (01) ==
LOC: DI 13:22
PROVIDERS: ATTEND Physician Assistant
DX: S09.93XA Unspecified injury of face, initial encounter (principal); K02.9 Dental caries, unspecified
CPT/HCPCS: 70486

== ENCOUNTER 2019-03-04 19:36 | Outpatient (CLI) | payer MEDICARE, OTHER | END 2019-03-04 19:37 | disposition EMS.NT | LOC: EMS 19:36 | PROVIDERS: ATTEND Surgery | DX: Z03.89 Encounter for observation for other suspected diseases and conditions ruled out (principal) ==

== ENCOUNTER 2019-03-06 05:41 | Outpatient (CLI) | payer MEDICARE, OTHER | END 2019-03-06 05:42 | disposition critical access hospital (66) | LOC: EMS 05:41 | PROVIDERS: ATTEND Surgery | DX: R53.1 Weakness (principal); S89.91XA Unspecified injury of right lower leg, initial encounter; W18.39XA Other fall on same level, initial encounter; Y93.K1 Activity, walking an animal | CPT/HCPCS: A0425; A0429 ==

== ENCOUNTER 2019-03-06 05:49 | Emergency (ER) | payer MEDICARE, OTHER ==
[2019-03-06 05:56] VITALS: BP 167/70
--- NOTE | 2019-03-06 06:15 | ED Physician Documentation ---
PD HPI LOWER EXT INJURY - Stated complaint Stated Complaint: GLF, RIGHT KNEE PAIN/LEG PAIN - Chief complaint Chief Complaint: Ext Problem - History obtained from History obtained from: Patient - History of Present Illness PD HPI LOW EXT INJURY LOCATION: Right, Knee Type of injury: Fall Where injury occurred: Street Timing - onset: Yesterday Timing - details: Abrupt onset Pain level max: 5 Pain level now: 0 Improved by: Rest Worsened by: Moving, Other (weight-bearing) Associated symptoms: Weakness, Swelling. No: Numbness, Tingling, Discolored Contributing factors: Anticoagulated Recently seen: Not recently seen - Additional information Additional information: This is a 73-year-old man who lives alone who Was walking his dog with his walker yesterday when the dog took off and knocked him down. He landed on his right knee. Fortunately a neighbor saw it happen who came over and assisted him up and he was able to ambulate into the house. He got up last night and walked on it but was painful and then this morning he got out of bed and not remembering that he had pain in the knee and went to stand up in the right leg just collapsed underneath of him. He fell to the ground and was unable to get up so he scratched out into the kitchen on his button called 911 after calling his daughter. He then called and canceled dialysis which he receives Wednesday and Wednesday. He did not hit his head in the fall last night or this morning. He denies loss of consciousness or dizziness. Patient did take a Vicodin pill through the night last night that helped the pain. Patient recently underwent aortic valve replacement in October 2018 he ended up having to have a pacemaker placed when they went to discharge him he was so weak and deconditioned that he could not walk so he was sent to rehab for 2 months. He is been home for a month and a half with a route home rehab person coming in up until last week. Patient is up-to-date on his tetanus vaccine. He has multiple bruises from the fall he is on Plavix. Review of Systems Constitutional: denies: Fever Ears: denies: Ear pain Nose: denies: Congestion Throat: denies: Sore throat Cardiac: denies: Chest pain / pressure, Palpitations Respiratory: denies: Dyspnea, Cough GI: denies: Nausea, Vomiting : denies: Dysuria Skin: reports: Other (Multiple bruises from being anticoagulated in the fall) Musculoskeletal: reports: Extremity pain, Joint pain. denies: Back pain Neurologic: reports: Generalized weakness. denies: Numbness, Head injury, LOC PD PAST MEDICAL HISTORY - Past Medical History Cardiovascular: Hypertension, High cholesterol, Coronary artery disease, Peripheral Vascular Disease, Deep vein thrombosis, Murmur Respiratory: COPD, Sleep apnea Neuro: TIA Endocrine/Autoimmune: Type 2 diabetes GI: GERD : Dialysis, Renal insuffiency HEENT: None Psych: Claustrophobia Musculoskeletal: Osteoarthritis Derm: None, Other - Past Surgical History Past Surgical History: Yes General: Appendectomy, Colonoscopy Cardiovascular: CABG, Coronary stent HEENT: Tonsil/Adenoidectomy - Present Medications Home Medications: Ambulatory Orders Medication Instructions Recorded Confirmed RX: Clopidogrel [Plavix] 75 mg PO DAILY 01/27/13 03/06/19 RX: Atorvastatin Calcium 80 mg PO HS 02/09/13 03/06/19 RX: Isosorbide Mononitrate 30 mg PO DAILY 03/13/14 03/06/19 [Isosorbide Mononitrate ER] RX: Tamsulosin [Flomax] 0.4 mg PO QPM 08/06/14 03/06/19 RX: Niacin [Niaspan] 500 mg PO DAILY 08/27/14 03/06/19 RX: Cholecalciferol (Vitamin D3) 2,000 units PO DAILY 06/03/16 03/06/19 [Vitamin D3] RX: Furosemide 80 mg PO DAILY 11/25/16 03/06/19 Insulin Detemir [Levemir] 25 unit SQ BID 02/27/17 03/06/19 RX: Metoprolol Succinate 1.5 tab PO DAILY 02/27/17 03/06/19 RX: amLODIPine [Norvasc] 2 tab PO DAILY 02/27/17 03/06/19 Ascorbic Acid [Vitamin C] 250 mg PO DAILY 05/25/17 03/06/19 RX: Ferrous Gluconate 324 mg PO DAILY 05/25/17 03/06/19 RX: Insulin Glargine [Lantus 30 units SQ BID 05/25/17 03/06/19 Solostar] RX: Nitroglycerin [Nitrostat] 1 tab SL PRN PRN 05/25/17 03/06/19 RX: Aspirin [Adult Low Dose 1 tab PO DAILY 09/02/18 03/06/19 Aspirin EC] RX: Insulin Lispro [Humalog Arturo 6 units SQ BID 09/02/18 03/06/19 Kwikpen] RX: LORazepam [Ativan] 1 tab PO QPM 09/02/18 03/06/19 RX: Valsartan 1 tab PO DAILY 09/02/18 03/06/19 Hydrocodone/Acetaminophen 1 - 2 each PO Q6H PRN #14 tablet 03/06/19 [Hydrocodon-Acetaminophen 5-325] - Allergies Allergies/Adverse Reactions: Allergies Allergy/AdvReac Type Severity Reaction Status Date / Time oxycodone AdvReac Intermediate Hallucinati Verified 03/06/19 05:56 ons bee stings Allergy Severe throat Uncoded 03/06/19 05:56 swelling - Social History Does the pt smoke?: No Smoking Status: Former smoker Does the pt drink ETOH?: No Does the pt have substance abuse?: No - Immunizations Immunizations are current?: Yes - POLST Patient has POLST: No PD ED PE NORMAL - Vitals Vital signs reviewed: Yes - General General: Alert and oriented X 3, No acute distress, Well developed/nourished - HEENT HEENT: Atraumatic, PERRL, EOMI, Other (Mucous membranes are slightly dry) - Cardiac Cardiac: RRR, No murmur, No rub, Strong equal pulses - Respiratory Respiratory: No respiratory distress, Clear bilaterally - Abdomen Abdomen: Normal bowel sounds, Soft, Non tender - Derm Derm: Normal color, Other (Multiple scattered bruises on his upper extremity and there is a superficial laceration on the right forearm.) - Extremities Extremities: No deformity, No edema, No calf tenderness / cord, Other (The knee is tender over the patella and there is some mild bruising there. Stable to varus and valgus stresses and there is a negative drawer sign. No obvious effusion. He is able to extend the knee and lift the lower leg off the bed. No evidence of a quadricep tendon rupture. He has a 2+ dorsalis pedis pulse is able to wiggle his toes and sensation is intact.) - Neuro Neuro: Alert and oriented X 3, personal lines appraiser 2-12 intact, No motor deficit, No sensory deficit, Normal speech - Psych Psych: Normal mood, Normal affect Results - Vitals Vitals: Vital Signs - 24 hr 03/06/19 05:52 Temperature 36.5 C Heart Rate 65 Respiratory 18 Rate Blood Pressure 167/70 H O2 Saturation 100 Oxygen O2 Source [] Room air O2 Source [] Room air O2 Source Room air - Labs Labs: Laboratory Tests 03/06/19 07:26 Sodium 142 Potassium 3.9 Chloride 104 Carbon Dioxide 24 Anion Gap 14.0 H BUN 30 H Creatinine 4.8 H Estimated GFR (MDRD) 12 L Glucose 213 H Calcium 9.0 - Rads (name of study) xray r knee Radiology: EMP read indepedently (Neg fracture), EMP read contemporaneously PD MEDICAL DECISION MAKING - ED course Complexity details: reviewed results, d/w patient ED course: Patient's knee x-ray does not show any obvious fracture. I think the knee gave out on him just because of the pain. Can be given a hydrocodone tablet and were trying to see if we can get him to his dialysis appointment this morning. We are unable to get him to his dialysis appointment this morning. In order a BMP to make sure he does not need emergent dialysis in the care will be turned over to Dr. Norman to follow-up and arrange dialysis if needed. Departure - Departure Disposition: 01 Home, Self Care Clinical Impression: Knee pain Qualifiers: Chronicity: acute Laterality: right Qualified Code(s): M25.561 - Pain in right knee Instructions: ED Meniscal Injury Knee Poss Follow-Up: Pam Avery MD [Provider Admit Priv/Credential] - Prescriptions: Hydrocodone/Acetaminophen [Hydrocodon-Acetaminophen 5-325] 1 - 2 each PO Q6H PRN #14 tablet PRN Reason: pain Comments: Ice the knee. May take hydrocodone if needed for the pain. Range of motion exercises to keep the knee from stiffening up. Do not attempt to stand up and less you are using your walker to support your weight and just take it slow. Follow-up with your primary care provider if he continued to experience knee pain or wanting to give out on you. Discharge Date/Time: 03/06/19 08:20
[2019-03-06] MEDS ORDERED: HYDROcod/ACETAM 5/325 MG TABLET PO STA (06:51)
--- NOTE | 2019-03-06 06:59 | XRAY Report ---
Reason: pain, s/p fall Procedure Date: 03/06/2019 Accession Number: [id number] / [id number] Procedure: XR - Knee 4 View RT CPT Code: FULL RESULT: EXAM: RIGHT KNEE RADIOGRAPHY EXAM DATE: 03/06/2019 06:41 AM. CLINICAL HISTORY: Pain, s/p fall. COMPARISON: XR KNEE 4 OR MORE VIEWS 08/20/2012 7:19 AM. TECHNIQUE: 3 views. FINDINGS: Bones: Normal. No fractures or bone lesions. Joints: Mild tricompartment joint space narrowing with osteophytes. No joint effusion. No subluxation. Soft Tissues: No soft tissue swelling. Traction osteophyte seen in the patella. Vascular calcifications are noted. IMPRESSION: 1. Normal alignment without evidence for acute fracture dislocation. 2. Mild tricompartmental degenerative arthritis is noted. RADIA
[2019-03-06 07:56] LABS: CREATININE 4.8 mg/dL (0.6-1.2)
== END 2019-03-06 08:20 | disposition home or self-care (01) ==
LOC: EDUNIT# → EDBD → ED 05:49
DX: M25.561 Pain in right knee (principal); S51.811A Laceration without foreign body of right forearm, initial encounter; S40.029A Contusion of unspecified upper arm, initial encounter; W54.1XXA Struck by dog, initial encounter; Y93.K1 Activity, walking an animal; Y92.410 Unspecified street and highway as the place of occurrence of the external cause; I10 Essential (primary) hypertension; E11.29 Type 2 diabetes mellitus with other diabetic kidney complication; N28.9 Disorder of kidney and ureter, unspecified; Z99.2 Dependence on renal dialysis; Z79.4 Long term (current) use of insulin; Z79.01 Long term (current) use of anticoagulants; Z87.891 Personal history of nicotine dependence
CPT/HCPCS: 36415; 73564; 80048; 99283; 99284; A9270

== ENCOUNTER 2019-03-14 13:41 | Outpatient (CLI) | payer MEDICARE, OTHER | END 2019-03-14 13:42 | disposition critical access hospital (66) | LOC: EMS 13:41 | PROVIDERS: ATTEND Surgery | DX: M25.522 Pain in left elbow (principal); M25.521 Pain in right elbow; R51 Headache; W19.XXXA Unspecified fall, initial encounter; Y92.811 Bus as the place of occurrence of the external cause | CPT/HCPCS: A0425; A0429 ==

== ENCOUNTER 2019-03-14 14:03 | Emergency (ER) | payer MEDICARE, OTHER ==
[2019-03-14 14:27] LABS: BASOPHILS # (AUTO) 0.1 10^3/uL (0.0-0.1); BASOPHILS % (AUTO) 0.7 %; EOSINOPHILS # (AUTO) 0.2 10^3/uL (0.0-0.7); EOSINOPHILS % (AUTO) 2.1 %; HGB - HEMOGLOBIN 12.5 g/dL (14.0-18.0); LYMPHOCYTES % (AUTO) 21.5 %; MEAN CORPUSCULAR HEMOGLOBIN 30.6 pg (27.0-31.0); MEAN CORPUSCULAR HGB CONC 31.4 g/dL (32.0-36.0); MEAN CORPUSCULAR VOLUME 97.3 fL (80.0-94.0); MEAN PLATELET VOLUME 11.2 fL (7.4-11.4); MONOCYTES # (AUTO) 0.8 10^3/uL (0.0-1.0); MONOCYTES % (AUTO) 8.6 %; NEUTROPHILS # (AUTO) 6.1 10^3/uL (1.5-6.6); NEUTROPHILS % (AUTO) 66.7 %; PLT - PLATELET COUNT 167 10^3/uL (130-450); RED BLOOD COUNT 4.09 10^6/uL (4.70-6.10); RED CELL DISTRIBUTION WIDTH 15.2 % (12.0-15.0); WHITE BLOOD COUNT 9.1 x10^3/uL (4.8-10.8)
[2019-03-14 14:32] LABS: INR 1.1 (0.8-1.2); PT - PROTHROMBIN TIME 11.9 secs (9.9-12.6)
[2019-03-14 14:37] LABS: ALBUMIN 3.7 g/dL (3.2-5.5); ALBUMIN/GLOBULIN RATIO 1.1 (1.0-2.2); BILIRUBIN,TOTAL 0.8 mg/dL (0.2-1.0); CALCIUM 9.1 mg/dL (8.5-10.3); CREATININE 4.1 mg/dL (0.6-1.2)
--- NOTE | 2019-03-14 14:48 | CT Report ---
Reason: fall, headache on plavix Procedure Date: 03/14/2019 Accession Number: [id number] / [id number] Procedure: CT - HEAD WO CPT Code: FULL RESULT: EXAM: CT HEAD EXAM DATE: 03/14/2019 02:35 PM. CLINICAL HISTORY: Fall, headache on plavix. COMPARISON: FACIAL BONES W/O 02/07/2019 1:35 PM BRAIN W/O 03/14/2014 3:32 PM. TECHNIQUE: Multiaxial CT images were obtained from the foramen magnum to the vertex. Reformats: Sagittal and coronal. IV contrast: None. In accordance with CT protocol optimization, one or more of the following dose reduction techniques were utilized for this exam: automated exposure control, adjustment of mA and/or KV based on patient size, or use of iterative reconstructive technique. FINDINGS: Parenchyma: Old lacunar infarcts in the bilateral basal ganglia and left morillo radiata. No intraparenchymal hemorrhage. No evidence of mass, midline shift, or CT findings of infarction. Cueva-white differentiation is distinct. Extraaxial Spaces: Normal for age. No subdural or epidural collections identified. Ventricles: Normal in size and position. Sinuses and Orbits: Imaged paranasal sinuses, orbits, and mastoids show no significant abnormality. Bones: No evidence of fracture or calvarial defect. Other: None. IMPRESSION: 1. No acute intracranial abnormality. 2. Old lacunar infarcts in the bilateral basal ganglia and left morillo radiata. RADIA
--- NOTE | 2019-03-14 14:53 | CT Report ---
Reason: FALL, HEADACHE, NECK PAIN, ON PLAVIX. Procedure Date: 03/14/2019 Accession Number: [id number] / [id number] Procedure: CT - CERVICAL SPINE WO CPT Code: FULL RESULT: EXAM: CT CERVICAL SPINE WITHOUT CONTRAST DATE: 03/14/2019 02:35 PM. HISTORY: Fall, headache, neck pain, on Plavix. COMPARISONS: FACIAL BONES W/O 02/07/2019 1:35 PM HEAD W/O 03/14/2019 2:23 PM CERVICAL SPINE COMPLETE 09/08/2013 9:50 AM. TECHNIQUE: Thin-section axial images were acquired of the cervical spine without contrast. Post-processing: Coronal and sagittal reformats. Other: None. In accordance with CT protocol optimization, one or more of the following dose reduction techniques were utilized for this exam: automated exposure control, adjustment of mA and/or KV based on patient size, or use of iterative reconstructive technique. FINDINGS: Alignment: No scoliosis or spondylolisthesis. Bones: No fracture or bone lesion. Interspace Levels/Facets: C1-C2: Unremarkable. Mild hypertrophy and sclerosis is seen between the anterior arch of C1 and the odontoid process. C2-C3: Unremarkable. C3-C4: Unremarkable. Mild left-sided degenerative facet change. Mild anterior osteophyte formation. C4-C5: Unremarkable. Mild central dorsal disk protrusion. No stenosis. C5-C6: Unremarkable. Mild broad-based dorsal subligamentous disk protrusion. Mild anterior osteophyte formation. No stenosis. C6-C7: Unremarkable. C7-T1: Unremarkable. Mild anterior osteophyte formation. Musculature: Normal. No fatty atrophy. Other: The paravertebral and prevertebral soft tissues are unremarkable. Moderate vascular calcification is seen involving partially visualized aortic arch, great vessels off the arch, and carotid bifurcation bilaterally. Mild interstitial bullous change is seen in the partially visualized lung apices. IMPRESSION: 1. No acute cervical spine injury. No fracture or dislocation. 2. Mild scattered cervical spondylosis as noted above. No canal or foraminal stenosis appreciated. RADIA
--- NOTE | 2019-03-14 14:57 | XRAY Report ---
Reason: elbow pain after fall Procedure Date: 03/14/2019 Accession Number: [id number] / [id number] Procedure: XR - Elbow 3 View BILAT CPT Code: FULL RESULT: EXAM: 1. Right Elbow Radiography 2. Left Elbow Radiography EXAM DATE: 03/14/2019 02:47 PM. CLINICAL HISTORY: Elbow pain after fall. COMPARISON: None. TECHNIQUE: 3 views each elbow. FINDINGS: Right: No acute fracture. No dislocation. No joint effusion. Left: No acute fracture. No dislocation. No joint effusion. There are clips and coils in the antecubital fossa. Triceps enthesopathy. Soft tissue irregularity posteriorly. IMPRESSION: No acute osseus abnormality. RADIA
--- NOTE | 2019-03-14 15:21 | ED Physician Documentation ---
History of Present Illness - Stated complaint Stated Complaint: GLF - Chief complaint Chief Complaint: Trauma Hd/Nk - Additonal information Additional information: This is a 73-year-old male history of end-stage renal disease, who presents a fter fall. Patient was in his wheelchair and wheelchair tilted back he fell backwards hitting the back of his head, he also hit his elbows as he was trying to protect his head to prevent it from impacting the ground. He denies loss of consciousness, states that his pain is mild. He is on Plavix. He has some mild pain in his bilateral elbows But is able to flex and extend them normally. He denies trauma elsewhere, no chest pain, shortness of breath, abdominal pain Review of Systems Eyes: denies: Loss of vision Cardiac: denies: Chest pain / pressure Skin: reports: Abrasion (s) Musculoskeletal: denies: Neck pain Neurologic: denies: LOC Endocrine: reports: Easy bruising / bleeding PD PAST MEDICAL HISTORY - Past Medical History Cardiovascular: Hypertension, High cholesterol, Coronary artery disease, Peripheral Vascular Disease, Deep vein thrombosis, Murmur Respiratory: COPD, Sleep apnea Neuro: TIA Endocrine/Autoimmune: Type 2 diabetes GI: GERD : Dialysis, Renal insuffiency HEENT: None Psych: Claustrophobia Musculoskeletal: Osteoarthritis Derm: None, Other - Past Surgical History Past Surgical History: Yes General: Appendectomy, Colonoscopy Cardiovascular: CABG, Coronary stent HEENT: Tonsil/Adenoidectomy - Present Medications Home Medications: Ambulatory Orders Medication Instructions Recorded Confirmed RX: Clopidogrel [Plavix] 75 mg PO DAILY 01/27/13 03/06/19 RX: Atorvastatin Calcium 80 mg PO HS 02/09/13 03/06/19 RX: Isosorbide Mononitrate 30 mg PO DAILY 03/13/14 03/06/19 [Isosorbide Mononitrate ER] RX: Tamsulosin [Flomax] 0.4 mg PO QPM 08/06/14 03/06/19 RX: Niacin [Niaspan] 500 mg PO DAILY 08/27/14 03/06/19 RX: Cholecalciferol (Vitamin D3) 2,000 units PO DAILY 06/03/16 03/06/19 [Vitamin D3] RX: Furosemide 80 mg PO DAILY 11/25/16 03/06/19 Insulin Detemir [Levemir] 25 unit SQ BID 02/27/17 03/06/19 RX: Metoprolol Succinate 1.5 tab PO DAILY 02/27/17 03/06/19 RX: amLODIPine [Norvasc] 2 tab PO DAILY 02/27/17 03/06/19 Ascorbic Acid [Vitamin C] 250 mg PO DAILY 05/25/17 03/06/19 RX: Ferrous Gluconate 324 mg PO DAILY 05/25/17 03/06/19 RX: Insulin Glargine [Lantus 30 units SQ BID 05/25/17 03/06/19 Solostar] RX: Nitroglycerin [Nitrostat] 1 tab SL PRN PRN 05/25/17 03/06/19 RX: Aspirin [Adult Low Dose 1 tab PO DAILY 09/02/18 03/06/19 Aspirin EC] RX: Insulin Lispro [Humalog Arturo 6 units SQ BID 09/02/18 03/06/19 Kwikpen] RX: LORazepam [Ativan] 1 tab PO QPM 09/02/18 03/06/19 RX: Valsartan 1 tab PO DAILY 09/02/18 03/06/19 Hydrocodone/Acetaminophen 1 - 2 each PO Q6H PRN #14 tablet 03/06/19 [Hydrocodon-Acetaminophen 5-325] - Allergies Allergies/Adverse Reactions: Allergies Allergy/AdvReac Type Severity Reaction Status Date / Time oxycodone AdvReac Intermediate Hallucinati Verified 03/14/19 14:11 ons bee stings Allergy Severe throat Uncoded 03/14/19 14:11 swelling - Social History Does the pt smoke?: No Smoking Status: Former smoker Does the pt drink ETOH?: No Does the pt have substance abuse?: No - Immunizations Immunizations are current?: Yes - POLST Patient has POLST: No PD ED PE NORMAL - Vitals Vital signs reviewed: Yes - General General: Alert and oriented X 3, No acute distress - HEENT HEENT: Other (Tenderness to the posterior occiput without step-offs or lesion. No laceration.) - Neck Neck: Supple, no meningeal sign - Cardiac Cardiac: RRR - Respiratory Respiratory: No respiratory distress - Abdomen Abdomen: Soft, Non tender, Non distended - Derm Derm: Warm and dry - Extremities Extremities: Other (No deformity. Bilateral elbows are mildly tender, though active ROM is normal. Slight abrasion on the left elbow. Neurovascularly intact bilaterally.) - Neuro Neuro: Alert and oriented X 3, generator technician 2-12 intact, No sensory deficit, Normal speech - Psych Psych: Normal mood, Normal affect Results - Vitals Vitals: Oxygen O2 Source [With Activity] Room air O2 Source [Without Activity] Room air O2 Source Room air - Labs Labs: Laboratory Tests 03/14/19 03/14/19 03/14/19 14:15 14:15 14:15 WBC 9.1 RBC 4.09 L Hgb 12.5 L Hct 39.8 L MCV 97.3 H MCH 30.6 MCHC 31.4 L RDW 15.2 H Plt Count 167 MPV 11.2 Neut # (Auto) 6.1 Lymph # (Auto) 2.0 [place] # (Auto) 0.8 Eos # (Auto) 0.2 Baso # (Auto) 0.1 Absolute Nucleated RBC 0.00 Nucleated RBC % 0.0 PT 11.9 INR 1.1 Sodium 137 Potassium 3.7 Chloride 98 L Carbon Dioxide 26 Anion Gap 13.0 BUN 19 Creatinine 4.1 H Estimated GFR (MDRD) 14 L Glucose 236 H Calcium 9.1 Total Bilirubin 0.8 AST 19 ALT 12 Alkaline Phosphatase 84 Total Protein 7.0 Albumin 3.7 Globulin 3.3 Albumin/Globulin Ratio 1.1 Lipase 18 L - Rads (name of study) CT head WO Radiology: Other (No acute intracranial abnormality) elbow bilateral Radiology: Other (No fracture or dislocation) PD MEDICAL DECISION MAKING - ED course Complexity details: considered differential (ICH, fracture, contusion, strain, sprain) ED course: Pt is well appearing and at his baseline, he does have a headache and some head tenderness, CT head was obtained and shows no acute intracranial abnormality. His elbow XR are also negative, and he has full active ROM. He suffered no other trauma. I discussed return precuations and concussion precautions and patient was discharged. Departure - Departure Disposition: 01 Home, Self Care Clinical Impression: Contusion Condition: Stable Instructions: ED Contusion Scalp Follow-Up: [place],HUBER Reilly [Primary Care Provider] - Comments: You were seen today after a fall. Your CT and X-rays did not show signs of fracture or head bleed. Please follow up with your PCP and return to the ER if you have confusion, severe headache, or other concerning symptoms. Discharge Date/Time: 03/14/19 16:22
[2019-03-14 16:18] VITALS: BP 136/60
== END 2019-03-14 16:22 | disposition home or self-care (01) ==
LOC: ED 14:03
DX: T14.8XXA Other injury of unspecified body region, initial encounter (principal); S50.312A Abrasion of left elbow, initial encounter; V79.3XXA Bus occupant (driver) (passenger) injured in unspecified nontraffic accident, initial encounter; Y93.I9 Activity, other involving external motion; I12.9 Hypertensive chronic kidney disease with stage 1 through stage 4 chronic kidney disease, or unspecified chronic kidney disease; E11.22 Type 2 diabetes mellitus with diabetic chronic kidney disease; I12.0 Hypertensive chronic kidney disease with stage 5 chronic kidney disease or end stage renal disease; N18.6 End stage renal disease; Z99.2 Dependence on renal dialysis; Z79.01 Long term (current) use of anticoagulants; Z79.4 Long term (current) use of insulin; Z87.891 Personal history of nicotine dependence
CPT/HCPCS: 36415; 70450; 72125; 80053; 83690; 85025; 85610; 99282; 99284

== ENCOUNTER 2019-04-24 13:44 | Outpatient (CLI) | payer MEDICARE, OTHER | END 2019-04-24 13:45 | disposition critical access hospital (66) | LOC: EMS 13:44 | PROVIDERS: ATTEND Surgery | DX: M25.561 Pain in right knee (principal); W18.39XA Other fall on same level, initial encounter; Y92.008 Other place in unspecified non-institutional (private) residence as the place of occurrence of the external cause; Z79.02 Long term (current) use of antithrombotics/antiplatelets | CPT/HCPCS: A0425; A0429 ==

== ENCOUNTER 2019-04-24 13:48 | Emergency (ER) | payer MEDICARE, OTHER ==
[2019-04-24 14:09] LABS: BASOPHILS # (AUTO) 0.1 10^3/uL (0.0-0.1); BASOPHILS % (AUTO) 0.5 %; EOSINOPHILS # (AUTO) 0.3 10^3/uL (0.0-0.7); EOSINOPHILS % (AUTO) 3.6 %; HGB - HEMOGLOBIN 12.6 g/dL (14.0-18.0); LYMPHOCYTES # (AUTO) 1.3 10^3/uL (1.5-3.5); LYMPHOCYTES % (AUTO) 13.8 %; MEAN CORPUSCULAR HEMOGLOBIN 31.2 pg (27.0-31.0); MEAN CORPUSCULAR HGB CONC 32.5 g/dL (32.0-36.0); MEAN PLATELET VOLUME 10.6 fL (7.4-11.4); MONOCYTES # (AUTO) 1.2 10^3/uL (0.0-1.0); MONOCYTES % (AUTO) 12.8 %; NEUTROPHILS # (AUTO) 6.5 10^3/uL (1.5-6.6); NEUTROPHILS % (AUTO) 68.8 %; PLT - PLATELET COUNT 154 10^3/uL (130-450); RED BLOOD COUNT 4.04 10^6/uL (4.70-6.10); RED CELL DISTRIBUTION WIDTH 14.6 % (12.0-15.0); WHITE BLOOD COUNT 9.5 x10^3/uL (4.8-10.8)
[2019-04-24 14:19] LABS: ALBUMIN 3.9 g/dL (3.2-5.5); ALBUMIN/GLOBULIN RATIO 1.1 (1.0-2.2); BILIRUBIN,TOTAL 0.6 mg/dL (0.2-1.0); CALCIUM 8.8 mg/dL (8.5-10.3); CREATININE 2.3 mg/dL (0.6-1.2); TOTAL PROTEIN 7.3 g/dL (6.7-8.2)
--- NOTE | 2019-04-24 14:22 | ED Physician Documentation ---
History of Present Illness - Stated complaint Stated Complaint: GLF/ HEAD INJURY - Chief complaint Chief Complaint: Trauma Hd/Nk - History obtained from History obtained from: Patient, EMS - History of Present Illness Timing: Today Pain level max: 5 Pain level now: 4 Improved by: rest Worsened by: movement - Additonal information Additional information: 73-year-old male presents to the emergency department after walking up his stairs today with his walker when he fell and struck his head. He takes Plavix and so was brought here for evaluation. He has chronic ongoing right knee pain. No change today after the fall. He does state that his right hip is sore as well. No loss of consciousness. No vomit. Had his dialysis this morning. Worse with movement, better with rest. Placed in a cervical collar upon arrival Review of Systems Ten Systems: 10 systems reviewed and negative Eyes: denies: Decreased vision, Photophobia Ears: denies: Ear pain Nose: denies: Rhinorrhea / runny nose, Congestion Throat: denies: Sore throat Respiratory: denies: Dyspnea, Cough GI: denies: Nausea, Vomiting Skin: denies: Rash Musculoskeletal: denies: Neck pain, Back pain Neurologic: denies: Focal weakness, Numbness, Syncope, Seizure, Confused, LOC PD PAST MEDICAL HISTORY - Past Medical History Past Medical History: Yes Cardiovascular: Hypertension, High cholesterol, Coronary artery disease, Peripheral Vascular Disease, Deep vein thrombosis, Murmur Respiratory: COPD, Sleep apnea Neuro: TIA Endocrine/Autoimmune: Type 2 diabetes GI: GERD : Dialysis, Renal insuffiency HEENT: None Psych: Claustrophobia Musculoskeletal: Osteoarthritis Derm: None, Other - Past Surgical History Past Surgical History: Yes General: Appendectomy, Colonoscopy Cardiovascular: CABG, Coronary stent, Valve replacement, Pacemaker HEENT: Tonsil/Adenoidectomy - Present Medications Home Medications: Ambulatory Orders Medication Instructions Recorded Confirmed Clopidogrel [Plavix] 75 mg PO DAILY 01/27/13 03/06/19 Atorvastatin Calcium 80 mg PO HS 02/09/13 03/06/19 Isosorbide Mononitrate [Isosorbide 30 mg PO DAILY 03/13/14 03/06/19 Mononitrate ER] Tamsulosin [Flomax] 0.4 mg PO QPM 08/06/14 03/06/19 Niacin [Niaspan] 500 mg PO DAILY 08/27/14 03/06/19 Cholecalciferol (Vitamin D3) 2,000 units PO DAILY 06/03/16 03/06/19 [Vitamin D3] Furosemide 80 mg PO DAILY 11/25/16 03/06/19 Insulin Detemir [Levemir] 25 unit SQ BID 02/27/17 03/06/19 Metoprolol Succinate 1.5 tab PO DAILY 02/27/17 03/06/19 amLODIPine [Norvasc] 2 tab PO DAILY 02/27/17 03/06/19 Ascorbic Acid [Vitamin C] 250 mg PO DAILY 05/25/17 03/06/19 Ferrous Gluconate 324 mg PO DAILY 05/25/17 03/06/19 Insulin Glargine [Lantus Solostar] 30 units SQ BID 05/25/17 03/06/19 Nitroglycerin [Nitrostat] 1 tab SL PRN PRN 05/25/17 03/06/19 Aspirin [Adult Low Dose Aspirin EC] 1 tab PO DAILY 09/02/18 03/06/19 Insulin Lispro [Humalog Arturo 6 units SQ BID 09/02/18 03/06/19 Kwikpen] LORazepam [Ativan] 1 tab PO QPM 09/02/18 03/06/19 Valsartan 1 tab PO DAILY 09/02/18 03/06/19 Hydrocodone/Acetaminophen 1 - 2 each PO Q6H PRN #14 tablet 03/06/19 [Hydrocodon-Acetaminophen 5-325] - Allergies Allergies/Adverse Reactions: Allergies Allergy/AdvReac Type Severity Reaction Status Date / Time oxycodone AdvReac Intermediate Hallucinati Verified 04/24/19 13:56 ons bee stings Allergy Severe throat Uncoded 04/24/19 13:56 swelling - Social History Does the pt smoke?: No Smoking Status: Never smoker Does the pt drink ETOH?: No Does the pt have substance abuse?: No - Immunizations Immunizations are current?: Yes - POLST Patient has POLST: No PD ED PE NORMAL - Vitals Vital signs reviewed: Yes - General General: Alert and oriented X 3, No acute distress, Well developed/nourished - HEENT HEENT: Atraumatic, PERRL, Moist mucous membranes - Neck Neck: Supple, no meningeal sign, No bony TTP - Cardiac Cardiac: RRR, Strong equal pulses - Respiratory Respiratory: No respiratory distress, Clear bilaterally - Abdomen Abdomen: Soft, Non tender, Non distended - Back Back: No spinal TTP - Derm Derm: Warm and dry - Extremities Extremities: Other (Tender to palpation over the right hip. Full range of motion but with with some pain. Abrasion to the right tibia. No tenderness of t he knee. Full range of motion without pain. No tenderness over the ankle. Normal examination of the other extremities.) - Neuro Neuro: Alert and oriented X 3, line patrolman 2-12 intact, No motor deficit, No sensory deficit, Normal speech - Psych Psych: Normal mood, Normal affect Results - Vitals Vitals: Vital Signs - 24 hr 04/24/19 04/24/19 04/24/19 13:52 14:26 14:57 Temperature 37.0 C Heart Rate 91 95 Respiratory 15 16 Rate Blood Pressure 161/86 H 160/87 H O2 Saturation 97 97 04/24/19 04/24/19 15:00 15:55 Temperature Heart Rate 91 74 Respiratory 18 16 Rate Blood Pressure 158/78 H 170/90 H O2 Saturation 99 100 Oxygen O2 Source [] Room air O2 Source [] Room air O2 Source Room air - Labs Labs: Laboratory Tests 04/24/19 04/24/19 14:00 14:00 WBC 9.5 RBC 4.04 L Hgb 12.6 L Hct 38.8 L MCV 96.0 H MCH 31.2 H MCHC 32.5 RDW 14.6 Plt Count 154 MPV 10.6 Neut # (Auto) 6.5 Lymph # (Auto) 1.3 L Christian # (Auto) 1.2 H Eos # (Auto) 0.3 Baso # (Auto) 0.1 Absolute Nucleated RBC 0.00 Nucleated RBC % 0.0 Sodium 136 Potassium 3.8 Chloride 94 L Carbon Dioxide 30 Anion Gap 12.0 BUN 10 Creatinine 2.3 H Estimated GFR (MDRD) 28 L Glucose 298 H Calcium 8.8 Total Bilirubin 0.6 AST 15 ALT 11 Alkaline Phosphatase 92 Total Protein 7.3 Albumin 3.9 Globulin 3.4 Albumin/Globulin Ratio 1.1 Lipase 26 - Rads (name of study) Head CT Radiology: Prelim report reviewed, EMP read contemporaneously, See rad report (No acute abnormality) Cervical spine CT Radiology: Prelim report reviewed, EMP read contemporaneously, See rad report (No acute abnormality) Right hip x-ray Radiology: Prelim report reviewed, EMP read contemporaneously, See rad report (No acute abnormality) PD MEDICAL DECISION MAKING - ED course Complexity details: reviewed results, re-evaluated patient, considered differential, d/w patient, d/w family ED course: 73-year-old male presents after a fall. No acute findings on radiographs. He is able to ambulate. No concern for occult hip fracture. No acute findings on laboratory testing. Pt will follow-up with his doctor for further care. Patient and family counseled regarding signs and symptoms for which I believe and urgent re-evaluation would be necessary. Patient with good understanding of and agreement to plan and is comfortable going home at this time This document was made in part using voice recognition software. While efforts are made to proofread this document, sound alike and grammatical errors may occur. Departure - Departure Disposition: 01 Home, Self Care Clinical Impression: Fall Qualifiers: Encounter type: initial encounter Qualified Code(s): W19.XXXA - Unspecified fall, initial encounter Head injury Qualifiers: Encounter type: initial encounter Qualified Code(s): S09.90XA - Unspecified injury of head, initial encounter Condition: Good Instructions: ED Head Injury Closed Follow-Up: Navya Bean PA [Primary Care Provider] - Within 1 week Comments: Return if you worsen. Follow-up with your doctor for further care. Your x-ray and CT scans do not show any acute abnormalities today. Discharge Date/Time: 04/24/19 15:56
--- NOTE | 2019-04-24 14:49 | CT Report ---
Reason: fall, head injury Procedure Date: 04/24/2019 Accession Number: [id number] / [id number] Procedure: CT - CERVICAL SPINE WO CPT Code: FULL RESULT: EXAM: CT CERVICAL SPINE WITHOUT CONTRAST DATE: 04/24/2019 02:24 PM. HISTORY: Fall, head injury. COMPARISONS: HEAD W/O 03/14/2019 2:23 PM. TECHNIQUE: Thin-section axial images were acquired of the cervical spine without contrast. Post-processing: Coronal and sagittal reformats. Other: None. In accordance with CT protocol optimization, one or more of the following dose reduction techniques were utilized for this exam: automated exposure control, adjustment of mA and/or KV based on patient size, or use of iterative reconstructive technique. FINDINGS: Alignment: No scoliosis or spondylolisthesis. Bones: No fracture or bone lesion. Musculature: Normal. No fatty atrophy. Other: The paravertebral and prevertebral soft tissues are unremarkable. Moderate upper lobe predominant centrilobular emphysema. IMPRESSION: Well aligned cervical spine with no acute displaced fractures. RAD[facility]
--- NOTE | 2019-04-24 14:53 | XRAY Report ---
Reason: fall, R hip pain Procedure Date: 04/24/2019 Accession Number: [id number] / [id number] Procedure: XR - Hip w/Pelvis 2-3V RT CPT Code: FULL RESULT: EXAM: RIGHT HIP RADIOGRAPHY EXAM DATE: 04/24/2019 02:30 PM. CLINICAL HISTORY: Fall, R hip pain. COMPARISON: None. TECHNIQUE: 2 views. FINDINGS: The bones may be demineralized. No acute fracture is visualized. No dislocation. Mild degenerative changes of the hip joints. Bilateral iliac artery stents. Peripheral vascular calcifications. IMPRESSION: No fracture visualized. Consider cross-sectional imaging if the patient is unable to bear weight. RADIA
--- NOTE | 2019-04-24 14:53 | CT Report ---
Reason: fall, head injury Procedure Date: 04/24/2019 Accession Number: [id number] / [id number] Procedure: CT - HEAD WO CPT Code: FULL RESULT: EXAM: CT HEAD EXAM DATE: 04/24/2019 02:24 PM. CLINICAL HISTORY: Fall, head injury. COMPARISON: HEAD W/O 03/14/2019 2:23 PM CERVICAL SPINE W/O 04/24/2019 2:09 PM. TECHNIQUE: Multiaxial CT images were obtained from the foramen magnum to the vertex. Reformats: Sagittal, coronal, true axial. IV contrast: None. In accordance with CT protocol optimization, one or more of the following dose reduction techniques were utilized for this exam: automated exposure control, adjustment of mA and/or KV based on patient size, or use of iterative reconstructive technique. FINDINGS: Parenchyma: Mild patchy hypodensity in the bilateral cerebral white matter as before consistent with chronic small vessel ischemic change. No new low or high-density lesions. No mass-effect. Cueva-white differentiation is intact. Extraaxial Spaces: Normal for age. No subdural or epidural collections identified. Ventricles: Normal in size and position. Sinuses and Orbits: Mild bilateral maxillary sinus mucosal thickening, increased. Other paranasal sinuses are clear as are mastoids and middle ears. Bones: No evidence of fracture or calvarial defect. Other: No scalp contusion is identified. IMPRESSION: 1. No intracranial hemorrhage or skull fracture. 2. Mild patchy chronic small vessel ischemic change in the bilateral cerebral white matter, as before. 3. Mild bilateral maxillary sinus mucosal thickening, increased from before. RADIA
[2019-04-24] MEDS ORDERED: ACETAMINOPHEN 325 MG TABLET PO STA (14:57)
[2019-04-24 15:56] VITALS: BP 170/90
== END 2019-04-24 15:56 | disposition home or self-care (01) ==
LOC: ED 13:48
DX: S09.90XA Unspecified injury of head, initial encounter (principal); S80.811A Abrasion, right lower leg, initial encounter; W10.9XXA Fall (on) (from) unspecified stairs and steps, initial encounter; Y93.89 Activity, other specified; I10 Essential (primary) hypertension; N28.9 Disorder of kidney and ureter, unspecified; E11.29 Type 2 diabetes mellitus with other diabetic kidney complication; Z79.4 Long term (current) use of insulin; Z99.2 Dependence on renal dialysis; Z79.01 Long term (current) use of anticoagulants
CPT/HCPCS: 36415; 70450; 72125; 73502; 80053; 83690; 85025; 99282; 99284; A9270

== ENCOUNTER 2019-07-04 11:32 | Emergency (ER) | payer MEDICARE, OTHER ==
[2019-07-04 12:12] LABS: BASOPHILS # (AUTO) 0.1 10^3/uL (0.0-0.1); BASOPHILS % (AUTO) 0.7 %; EOSINOPHILS # (AUTO) 0.1 10^3/uL (0.0-0.7); EOSINOPHILS % (AUTO) 0.8 %; HGB - HEMOGLOBIN 12.7 g/dL (14.0-18.0); LYMPHOCYTES # (AUTO) 1.4 10^3/uL (1.5-3.5); LYMPHOCYTES % (AUTO) 14.7 %; MEAN CORPUSCULAR HEMOGLOBIN 32.6 pg (27.0-31.0); MEAN CORPUSCULAR HGB CONC 32.1 g/dL (32.0-36.0); MEAN CORPUSCULAR VOLUME 101.5 fL (80.0-94.0); MEAN PLATELET VOLUME 11.5 fL (7.4-11.4); MONOCYTES # (AUTO) 0.8 10^3/uL (0.0-1.0); MONOCYTES % (AUTO) 8.1 %; NEUTROPHILS # (AUTO) 7.4 10^3/uL (1.5-6.6); NEUTROPHILS % (AUTO) 75.1 %; PLT - PLATELET COUNT 168 10^3/uL (130-450); RED CELL DISTRIBUTION WIDTH 13.5 % (12.0-15.0); WHITE BLOOD COUNT 9.8 x10^3/uL (4.8-10.8)
[2019-07-04 12:21] LABS: ALBUMIN 3.7 g/dL (3.2-5.5); ALBUMIN/GLOBULIN RATIO 0.9 (1.0-2.2); BILIRUBIN,TOTAL 0.7 mg/dL (0.2-1.0); CALCIUM 9.1 mg/dL (8.5-10.3); CREATININE 4.1 mg/dL (0.6-1.2); TOTAL PROTEIN 7.7 g/dL (6.7-8.2)
--- NOTE | 2019-07-04 13:12 | ED Physician Documentation ---
PD HPI CHEST PAIN - Stated complaint Stated Complaint: R ARM PX/PACEMAKER - Chief complaint Chief Complaint: Cardiac - History obtained from History obtained from: Patient - History of Present Illness Timing - onset: How many hours ago (1), Today Timing - onset during: Light activity (He was in cardiac rehab on the treadmill and noticed some pain in the right shoulder down the right arm. He has had this with walking and activity lightly over the last several days as well. He thought it might be some scar tissue or such around his pacemaker which is close in that area. However it is been largely activity or mild exertion related. He was referred from cardiac rehab to the ER because of the chest pain episode. He states it has decreased already significantly and mostly gone.), Exertion Timing - duration: Days (He has noted some exertionally related right shoulder and chest pain with activity over the last several days and was notable in [facility] today.) Timing - details: Abrupt onset, Still present (Minimal discomfort on coming to the ER), Intermittant Quality: Aching, Pain Location: Right chest, Right shoulder/arm Radiation: Right upper extremity Improved by: Rest Worsened by: Exertion. No: Inspiration, Movement Associated symptoms: Shortness of air. No: Nausea, Vomiting, Feeling faint / dizzy, Palpitations, Cough Similar symptoms before: Diagnosis (He does have history of coronary disease and has prior stents with the last one perhaps around August of this year. He then had a valve replacement at and August or September and had been doing okay without chest pain episodes. He has not had some exertional chest pain over the last several days.) Review of Systems Constitutional: denies: Fever, Chills Nose: denies: Rhinorrhea / runny nose, Congestion Throat: denies: Sore throat Cardiac: reports: Chest pain / pressure. denies: Palpitations Respiratory: reports: Dyspnea. denies: Cough, Wheezing GI: denies: Nausea, Vomiting, Diarrhea Skin: denies: Rash, Lesions Musculoskeletal: denies: Extremity swelling Neurologic: reports: Generalized weakness. denies: Focal weakness, Numbness, Altered mental status PD PAST MEDICAL HISTORY - Past Medical History Cardiovascular: Hypertension, High cholesterol, Coronary artery disease, Peripheral Vascular Disease, Deep vein thrombosis, Murmur Respiratory: COPD, Sleep apnea Neuro: TIA Endocrine/Autoimmune: Type 2 diabetes GI: GERD : Dialysis, Renal insuffiency HEENT: None Psych: Claustrophobia Musculoskeletal: Osteoarthritis Derm: None, Other - Past Surgical History Past Surgical History: Yes General: Appendectomy, Colonoscopy Cardiovascular: CABG, Coronary stent, Valve replacement, Pacemaker HEENT: Tonsil/Adenoidectomy - Present Medications Home Medications: Ambulatory Orders Medication Instructions Recorded Confirmed Clopidogrel [Plavix] 75 mg PO DAILY 01/27/13 03/06/19 Atorvastatin Calcium 80 mg PO HS 02/09/13 03/06/19 Isosorbide Mononitrate [Isosorbide 30 mg PO DAILY 03/13/14 03/06/19 Mononitrate ER] Tamsulosin [Flomax] 0.4 mg PO QPM 08/06/14 03/06/19 Niacin [Niaspan] 500 mg PO DAILY 08/27/14 03/06/19 Cholecalciferol (Vitamin D3) 2,000 units PO DAILY 06/03/16 03/06/19 [Vitamin D3] Furosemide 80 mg PO DAILY 11/25/16 03/06/19 Insulin Detemir [Levemir] 25 unit SQ BID 02/27/17 03/06/19 Metoprolol Succinate 1.5 tab PO DAILY 02/27/17 03/06/19 amLODIPine [Norvasc] 2 tab PO DAILY 02/27/17 03/06/19 Ascorbic Acid [Vitamin C] 250 mg PO DAILY 05/25/17 03/06/19 Ferrous Gluconate 324 mg PO DAILY 05/25/17 03/06/19 Insulin Glargine [Lantus Solostar] 30 units SQ BID 05/25/17 03/06/19 Nitroglycerin [Nitrostat] 1 tab SL PRN PRN 05/25/17 03/06/19 Aspirin [Adult Low Dose Aspirin EC] 1 tab PO DAILY 09/02/18 03/06/19 Insulin Lispro [Humalog Arturo 6 units SQ BID 09/02/18 03/06/19 Kwikpen] LORazepam [Ativan] 1 tab PO QPM 09/02/18 03/06/19 Valsartan 1 tab PO DAILY 09/02/18 03/06/19 Hydrocodone/Acetaminophen 1 - 2 each PO Q6H PRN #14 tablet 03/06/19 [Hydrocodon-Acetaminophen 5-325] - Allergies Allergies/Adverse Reactions: Allergies Allergy/AdvReac Type Severity Reaction Status Date / Time omeprazole Allergy Unknown Verified 04/25/19 08:04 oxycodone AdvReac Intermediate Hallucinati Verified 04/24/19 13:56 ons bee stings Allergy Severe throat Uncoded 04/24/19 13:56 swelling - Social History Does the pt smoke?: No Smoking Status: Never smoker Does the pt drink ETOH?: No Does the pt have substance abuse?: No - Immunizations Immunizations are current?: Yes - POLST Patient has POLST: No PD ED PE NORMAL - Vitals Vital signs reviewed: Yes - General General: Alert and oriented X 3, No acute distress, Well developed/nourished - HEENT HEENT: Moist mucous membranes, Pharynx benign - Neck Neck: Supple, no meningeal sign, No adenopathy, No JVD - Cardiac Cardiac: RRR, No murmur - Respiratory Respiratory: Clear bilaterally, Other (No chest wall tenderness noted. The pacemaker is present in the right infraclavicular area without any redness tenderness or swelling at the site.) - Abdomen Abdomen: Soft, Non tender - Back Back: No CVA TTP - Derm Derm: Normal color, Warm and dry - Extremities Extremities: No deformity, No tenderness to palpate, Normal ROM s pain, No edema, No calf tenderness / cord - Neuro Neuro: Alert and oriented X 3, No motor deficit, Normal speech Results - Vitals Vitals: Vital Signs - 24 hr 07/04/19 07/04/19 07/04/19 11:40 13:25 15:25 Temperature 36.4 C L 36.6 C 36.4 C L Heart Rate 85 107 H 83 Respiratory 18 16 14 Rate Blood Pressure 172/84 H 150/94 H 164/91 H O2 Saturation 98 100 99 07/04/19 07/04/19 07/04/19 16:47 18:09 18:32 Temperature 36.6 C Heart Rate 87 87 95 Respiratory 14 17 22 Rate Blood Pressure 155/96 H 155/77 H 173/95 H O2 Saturation 94 91 L 97 07/04/19 07/04/19 07/04/19 19:20 20:00 20:21 Temperature Heart Rate 94 93 Respiratory 16 17 17 Rate Blood Pressure 172/93 H 161/87 H O2 Saturation 98 95 Oxygen O2 Source [With Activity] Room air O2 Source [Without Activity] Room air O2 Source Room air - EKG (time done) 11:51 Rate: Rate (enter#) (81) Rhythm: NSR, Paced [place]: Normal Intervals: Wide QRS, RBBB Ischemia: Non specific changes Compare to prior EKG: Unchanged from prior EKG (from 09/21/18) - Labs Labs: Laboratory Tests 07/04/19 07/04/19 07/04/19 12:02 12:02 12:02 WBC 9.8 RBC 3.90 L Hgb 12.7 L Hct 39.6 L MCV 101.5 H MCH 32.6 H MCHC 32.1 RDW 13.5 Plt Count 168 MPV 11.5 H Neut # (Auto) 7.4 H Lymph # (Auto) 1.4 L Rush # (Auto) 0.8 Eos # (Auto) 0.1 Baso # (Auto) 0.1 Absolute Nucleated RBC 0.00 Nucleated RBC % 0.0 Sodium 138 Potassium 5.0 Chloride 96 L Carbon Dioxide 28 Anion Gap 14.0 H BUN 34 H Creatinine 4.1 H Estimated GFR (MDRD) 14 L Glucose 337 H Calcium 9.1 Total Bilirubin 0.7 AST 11 ALT 11 Alkaline Phosphatase 79 Troponin I High Sens 47.7 H* Total Protein 7.7 Albumin 3.7 Globulin 4.0 Albumin/Globulin Ratio 0.9 L Lipase 32 07/04/19 14:23 WBC RBC Hgb Hct MCV MCH MCHC RDW Plt Count MPV Neut # (Auto) Lymph # (Auto) Rush # (Auto) Eos # (Auto) Baso # (Auto) Absolute Nucleated RBC Nucleated RBC % Sodium Potassium Chloride Carbon Dioxide Anion Gap BUN Creatinine Estimated GFR (MDRD) Glucose Calcium Total Bilirubin AST ALT Alkaline Phosphatase Troponin I High Sens 183.1 H* Total Protein Albumin Globulin Albumin/Globulin Ratio Lipase - Rads (name of study) chest xray Radiology: Prelim report reviewed (no acute process), See rad report PD MEDICAL DECISION MAKING - ED course Complexity details: reviewed results (The patient has had some exertional chest pain and had a worse episode today at cardiac rehab and referred to the ER. He had initial moderately elevated troponin. However 2 hours later it is gone up fourfold suggesting an acute myocardial ischemia. Unsure whether this is unstable angina versus non-STEMI. His symptoms resolved after 1 nitroglycerin and rest. His cardiology is in [facility] Dr. Leyva. I talked with the on-call minister helper to states the patient will need further evaluation and refers to their hospitalist. I talked with Dr. khan who is on hospitalist who accepted transfer.), considered differential, d/w patient, d/w solutions delivery consultant (Cardiology at [facility] infrastructure solutions architect for his Cardio. ) Departure - Departure Disposition: 02 Transfer Acute Care Hosp Clinical Impression: Chest pain on exertion, Elevated troponin Condition: Stable Record reviewed to determine appropriate education?: Yes Discharge Date/Time: 07/04/19 20:45
--- NOTE | 2019-07-04 14:00 | XRAY Report ---
Reason: right chest/pacer area pain Procedure Date: 07/04/2019 Accession Number: [id number] / [id number] Procedure: XR - Chest 2 View X-Ray CPT Code: 44218 Final Report FULL RESULT: EXAM: CHEST RADIOGRAPHY EXAM DATE: 07/04/2019 01:31 PM. CLINICAL HISTORY: Right chest/pacer area pain. COMPARISON: CHEST 1 VIEW 05/25/2017 6:02 PM. TECHNIQUE: 2 views. FINDINGS: Lungs/Pleura: Lucent upper lungs are compatible with COPD. Central bronchial wall thickening is noted. Unchanged left greater than right basilar pulmonary opacities. No pneumothorax. Mediastinum: Stable heart size and mediastinum. Atherosclerotic plaque of the aortic arch. Other: Expected position of leads for cardiac pacemaker. IMPRESSION: 1. Expected position of leads for cardiac pacemaker. 2. Stable heart size and mediastinum. 3. COPD is noted with central bronchial wall thickening that could reflect underlying reactive airways or bronchitis. RADIA
[2019-07-04] MEDS ORDERED: NITROGLYCERIN SL 0.4 MG TABLET SL STA (15:14)
[2019-07-04] MEDS ORDERED: HEPARIN 5,000 UNIT/ML VIAL IVP STA (16:06)
[2019-07-04] MEDS ORDERED: HEPARIN 25000UNITS/500ML (D5W) 25,000 UNIT/500 ML BAG IV STA (16:47)
[2019-07-04 20:23] VITALS: BP 161/87
== END 2019-07-04 20:45 | disposition short-term general hospital (02) ==
LOC: ED 11:32
DX: R07.89 Other chest pain (principal); R74.8 Abnormal levels of other serum enzymes; I45.10 Unspecified right bundle-branch block; I25.10 Atherosclerotic heart disease of native coronary artery without angina pectoris; I10 Essential (primary) hypertension; Z95.5 Presence of coronary angioplasty implant and graft; Z95.1 Presence of aortocoronary bypass graft; Z95.2 Presence of prosthetic heart valve; Z95.0 Presence of cardiac pacemaker; Z79.02 Long term (current) use of antithrombotics/antiplatelets; Z79.82 Long term (current) use of aspirin; E11.51 Type 2 diabetes mellitus with diabetic peripheral angiopathy without gangrene; Z79.4 Long term (current) use of insulin
CPT/HCPCS: 36415; 71046; 80053; 83690; 84484; 85025; 93005; 96374; 99284